=== PATIENT | female | born 1990 | race Caucasian/White ===

== ENCOUNTER 2016-06-28 11:13 | Emergency (ER) | payer BC ==
[~2016-06-28 11:13] MED LIST: ALBU25PO2 MC; DOCU100C PO; LORA10CA PO; OMEP40CA5 PO; PNV1TABL4 PO; PREN1TAB58 PO; PROM25TA10 PO; folic acid; singular
[2016-06-28 11:41] VITALS: BP 132/77
[2016-06-28] MEDS ORDERED: NAPROXEN 500 MG TABLET PO STA (12:02)
--- NOTE | 2016-06-28 12:12 | RAD ---
Indication dog bite. Pain. AP and lateral views of the left forearm were obtained. AP oblique and lateral views of the left wrist were also performed. There is some soft tissue swelling involving the midportion of the forearm and distally. An acute bony finding is not seen. No radiopaque foreign body is seen in the soft tissues. IMPRESSION: Soft tissue swelling. No bony abnormality seen
[2016-06-28] MEDS ORDERED: HYDROCODONE/APAP 5/325MG TABLET. PO ONE (12:15)
[2016-06-28] MEDS ORDERED: NEOMY/BACITR/POLYMYXIN OINT PACKET. TP ONE (12:15)
[2016-06-28] MEDS ORDERED: HYDR-971 PO (12:24)
[2016-06-28] MEDS ORDERED: AMOX1TAB61 PO (12:24)
--- NOTE | 2016-06-28 12:24 | PHYS DOC ---
Past Medical History Past Medical History: Depression, Hypertension Additional Past Medical Histor: seasonal allergies Past Surgical History: Cholecystectomy, Tonsillectomy Additional Past Surgical Histo: TE fistula repair, trach malasia, herniated ovary repair Additional Information: 1/2 ppd Alcohol Use: None Drug Use: None Adult General Chief Complaint Chief Complaint: ANIMAL BITE HPI HPI Patient is a 25 year old female who presents with dog bites to the left upper extremity, abdomen and right middle finger. Patient states she got bit by her neighbor's dog. Patient states the dog is up-to-date with his shots. Review of Systems Review of Systems Constitutional: Denies fever or chills [] Musculoskeletal: Denies back pain or joint pain [] Integument: dog bites to the left upper extremity, abdomen and right middle finger Neurologic: Denies headache, focal weakness or sensory changes [] Endocrine: Denies polyuria or polydipsia [] Current Medications Current Medications Current Medications Medications (Trade) Dose Ordered Sig/[place] Start Time Stop Time Status Last Admin Dose Admin Acetaminophen/ Hydrocodone Bitart (Lortab 5/325) 1 tab 1X ONCE 06/28/16 12:15 06/28/16 12:16 DC 06/28/16 12:17 1 TAB Naproxen (Naprosyn) 500 mg 1X STAT 06/28/16 12:02 06/28/16 12:05 DC Neomycin/ Polymyxin/ Bacitracin (Triple Antibiotic Ointment) 2 pkt 1X ONCE 06/28/16 12:15 06/28/16 12:16 DC 06/28/16 12:17 2 PKT Allergies Allergies Allergies Coded Allergies Type Severity Reaction Last Updated Verified gluten Allergy Intermediate 06/17/15 Yes melon Allergy Intermediate Itching 06/17/15 Yes ondansetron Allergy Intermediate makes her more nauseaous 06/17/15 Yes Physical Exam Physical Exam Constitutional: Well developed, well nourished, no acute distress, non-toxic appearance. [] Skin: Left forearm with multiple dog bite ruffin encompassing half the forearm, right middle finger with 1 dog bite anmol on the dorsal aspect of the PIP joint. The bite appears superficial. Full range of motion to the fingers. Adequate flexion and extension of the right middle finger at the MIP PIP and DIP joints. +2 right radial pulse. Cap refill less than 2 seconds the right upper extremity. Sensation intact to the right upper extremity. Mid lower abdomen with small amount of dog bite ruffin. Back: No tenderness, no CVA tenderness. [] Extremities: No tenderness, no cyanosis, no clubbing, ROM intact, no edema. [] Neurologic: Alert and oriented X 3, normal motor function, normal sensory function, no focal deficits noted. [] Psychologic: Affect normal, judgement normal, mood normal. [] Current Patient Data Vital Signs Vital Signs Date Time Temp Pulse Resp B/P Pulse Ox O2 Delivery O2 Flow Rate FiO2 06/28/16 12:17 20 06/28/16 11:41 98.9 83 97 Room Air 98.9 EKG EKG [] Radiology/Procedures Radiology/Procedures [] Course & Med Decision Making Course & Med Decision Making Pertinent Labs and Imaging studies reviewed. (See chart for details) Patient was seen for a dog bites. The dog is up-to-date with its shots. Patient is up-to-date with her tetanus. Left forearm and wrist x-rays interpreted by radiologist are negative for any acute findings. Patient was instructed to keep the area clean and dry. Neosporin recommended to the area. Discharged on Augmentin for 10 days. Provided return precautions and discharged in stable condition. Dragon Disclaimer Dragon Disclaimer This electronic medical record was generated, in whole or in part, using a voice recognition dictation system. Departure Departure Impression: Primary Impression: Dog bite Disposition: 01 HOME, SELF-CARE Condition: STABLE Referrals: ANUSHKA LOBO MD (PCP) follow up with your doctor in one week Patient Instructions: Animal Bite, [id number] Additional Instructions: You were seen for animal bites. Please wash the areas with soap and water, keep them covered if draining otherwise live them open to air. Complete your antibiotics. Come back to the emergency room if you have a fever or worsening symptoms. Scripts Hydrocodone/Apap 5-325 ([place] 5-325 Tablet)1 Each Tablet1-2 Tab PO Q4-6HRS #14 TAB Prov:[facility] 06/28/16 Amoxicillin/Potassium Clav (Augmentin 875-125 Tablet)1 Each Tablet1 Tab PO BID # 20 TAB Prov:[facility] 06/28/16 Problem Qualifiers Primary Impression: Dog bite Encounter type: initial encounter Qualified Code: W54.0XXA - Bitten by dog, initial encounter JEANNETET SCOTT APRN Jun 28, 2016 12:24
== END 2016-06-28 12:36 | disposition home or self-care (01) ==
LOC: ER 11:13
DX: S31.159A Open bite of abdominal wall, unspecified quadrant without penetration into peritoneal cavity, initial encounter (principal); S51.852A Open bite of left forearm, initial encounter; S61.252A Open bite of right middle finger without damage to nail, initial encounter; I10 Essential (primary) hypertension; Z88.8 Allergy status to other drugs, medicaments and biological substances; W54.0XXA Bitten by dog, initial encounter; Y93.89 Activity, other specified; Y92.89 Other specified places as the place of occurrence of the external cause; Y99.8 Other external cause status
CPT/HCPCS: 73090; 73110; 99284

== ENCOUNTER → 2016-07-26 | Outpatient (CLI) | payer BC ==
[2016-06-28 11:41] VITALS: BP 132/77
[~2016-07-26] MED LIST changes: +AMOX1TAB61 PO; +HYDR-971 PO
--- NOTE | 2016-07-26 16:33 | KCIC ---
PROCEDURE Left forearm sonogram. HISTORY Palpable lump. TECHNIQUE Sonographic imaging of the left forearm at the site of palpable concern was performed. COMPARISON None. FINDINGS There is no suspicious sonographic finding within the region of palpable concern along the forearm at the site of a dog bite. Specifically, no abscess is seen. IMPRESSION No sonographic abnormality within the left forearm underlying a dog bite. Electronically signed by: Tessa Kirby (Jul 26, 2016 16:32:12)
== END | disposition home or self-care (01) ==
LOC: KCIC US 15:35
PROVIDERS: ATTEND Nurse Practitioner Family
DX: R22.9 Localized swelling, mass and lump, unspecified (principal)
CPT/HCPCS: 76881

== ENCOUNTER 2016-12-07 19:42 | Emergency (ER) | payer BC ==
[~2016-12-07] VITALS: Ht 165.1 cm; Wt 113.4 kg
[~2016-12-07 19:42] MED LIST changes: +DOCU-150 PO; -DOCU100C PO
[2016-12-07] MEDS ORDERED: fentaNYL PF VIAL 100 MCG/2 ML VIAL IV ONE (20:15)
[2016-12-07] MEDS ORDERED: KETOROLAC TROMETHAMINE 30 MG/ML INJ. IV ONE (20:15)
[2016-12-07] MEDS ORDERED: PROMETHAZINE 12.5 MG in IV NORMAL SALINE 50ML 50 ML IV ONE (20:15)
[2016-12-07] MEDS ORDERED: IV NORMAL SALINE 1000ML BAG 1,000 ML IV ONE (20:15)
[2016-12-07 20:16] LABS: BASO % 0 % (0-3); EOS % 1 % (0-3); HEMATOCRIT 37.8 % (36.0-47.0); HEMOGLOBIN 13.3 g/dL (12.0-15.5); LYMPH # 2.1 x10^3/uL (1.0-4.8); LYMPH % 20 % (24-48); MEAN CORPUSCULAR HEMOGLOBIN 30 pg (25-35); MEAN CORPUSCULAR HGB CONC 35 g/dL (31-37); MEAN CORPUSCULAR VOLUME 85 fL (79-100); MONO % 7 % (0-9); NEUT % 72 % (31-73); PLATELET COUNT 212 x10^3/uL (140-400); RED BLOOD COUNT 4.44 x10^6/uL (3.50-5.40); RED CELL DISTRIBUTION WIDTH 13.4 % (11.5-14.5); WHITE BLOOD COUNT 10.5 x10^3/uL (4.0-11.0)
[2016-12-07 20:18] LABS: BILIRUBIN,URINE NEGATIVE (NEG); GLUCOSE,URINE NEGATIVE (NEG); NITRITE,URINE NEGATIVE (NEG); PROTEIN,URINE NEGATIVE (NEG-TRACE); UROBILINOGEN,URINE 0.2 mg/dL (0.2 mg/dL)
[2016-12-07 20:29] LABS: BACTERIA,URINE FEW /HPF (0-FEW); RBC,URINE 0 /HPF (0-2); SQUAMOUS EPITHELIAL CELL,UR FEW /LPF; WBC,URINE RARE /HPF (0-4)
[2016-12-07 20:34] LABS: CALCIUM 8.8 mg/dL (8.5-10.1); CREATININE 0.8 mg/dL (0.6-1.0); POTASSIUM 3.7 mmol/L (3.5-5.1)
[2016-12-07 20:41] LABS: ALBUMIN 3.6 g/dL (3.4-5.0); MAGNESIUM 1.7 mg/dL (1.8-2.4); TOTAL BILIRUBIN 0.4 mg/dL (0.2-1.0); TOTAL PROTEIN 7.3 g/dL (6.4-8.2)
--- NOTE | 2016-12-07 21:27 | PHYS DOC ---
Past Medical History Past Medical History: Depression, Hypertension Additional Past Medical Histor: seasonal allergies Past Surgical History: Cholecystectomy, Tonsillectomy Additional Past Surgical Histo: TE fistula repair, trach malasia, herniated ovary repair Alcohol Use: None Drug Use: None Adult General Chief Complaint Chief Complaint: FLANK PAIN HPI HPI Patient is a 26 year old female presenting to the emergency department for evaluation of left flank pain that started earlier today and has persisted and worsened. She says it is sharp worse with palpation and movement makes her nauseated but she has had no vomiting diarrhea constipation dysuria hematuria vaginal bleeding or vaginal discharge. Patient says that she has had a cholecystectomy but denies any other abdominal surgeries. Review of Systems Review of Systems Constitutional: Denies fever or chills [] Eyes: Denies change in visual acuity, redness, or eye pain [] HENT: Denies nasal congestion or sore throat [] Respiratory: Denies cough or shortness of breath [] Cardiovascular: No additional information not addressed in HPI [] GI: . No abdominal pain. + nausea, vomiting. No diarrhea [] : Denies dysuria or hematuria [] Musculoskeletal: + back pain. No joint pain [] Integument: Denies rash or skin lesions [] Neurologic: Denies headache, focal weakness or sensory changes [] Current Medications Current Medications Current Medications Medications (Trade) Dose Ordered Sig/[facility] Start Time Stop Time Status Last Admin Dose Admin Fentanyl Citrate (Fentanyl 2ml Vial) 75 mcg 1X ONCE 12/07/16 20:15 12/07/16 20:16 DC 12/07/16 20:25 75 MCG Hydromorphone HCl (Dilaudid) 1 mg 1X ONCE 12/07/16 21:30 12/07/16 21:31 DC 12/07/16 22:00 1 MG Ketorolac Tromethamine (Toradol) 30 mg 1X ONCE 12/07/16 20:15 12/07/16 20:16 DC 12/07/16 20:24 30 MG Promethazine HCl 12.5 mg/Sodium Chloride 50.5 ml @ 101 mls/hr 1X ONCE 12/07/16 20:15 12/07/16 20:44 DC 12/07/16 20:28 101 MLS/HR Sodium Chloride 1,000 ml @ 1,000 mls/hr 1X ONCE 12/07/16 20:15 12/07/16 21:14 DC 12/07/16 20:26 1,000 MLS/HR Allergies Allergies Allergies Coded Allergies Type Severity Reaction Last Updated Verified gluten Allergy Intermediate 06/17/15 Yes melon Allergy Intermediate Itching 06/17/15 Yes ondansetron Allergy Intermediate makes her more nauseaous 06/17/15 Yes Physical Exam Physical Exam Constitutional: Well developed, well nourished, no acute distress, non-toxic appearance. [] HENT: Normocephalic, atraumatic, bilateral external ears normal, oropharynx moist, no oral exudates, nose normal. [] Eyes: PERRLA, EOMI, conjunctiva normal, no discharge. [] Neck: Normal range of motion, no tenderness, supple, no stridor. [] Cardiovascular:Heart rate regular rhythm, no murmur [] Lungs & Thorax: Bilateral breath sounds clear to auscultation [] Abdomen: Bowel sounds normal, soft, no tenderness, no masses, no pulsatile masses. [] Skin: Warm, dry, no erythema, no rash. [] Back: No tenderness, no CVA tenderness. [] Extremities: No tenderness, no cyanosis, no clubbing, ROM intact, no edema. [] Neurologic: Alert and oriented X 3, normal motor function, normal sensory function, no focal deficits noted. [] Psychologic: Affect normal, judgement normal, mood normal. [] Current Patient Data Vital Signs Vital Signs Date Time Temp Pulse Resp B/P (MAP) Pulse Ox O2 Delivery O2 Flow Rate FiO2 12/07/16 22:00 98 Room Air 12/07/16 20:00 99.2 87 24 159/70 (99) 99.2 Lab Values Laboratory Tests Test 12/07/16 19:12 12/07/16 20:05 POC Urine HCG, Qualitative Hcg negative (Negative) White Blood Count 10.5 x10^3/uL (4.0-11.0) Red Blood Count 4.44 x10^6/uL (3.50-5.40) Hemoglobin 13.3 g/dL (12.0-15.5) Hematocrit 37.8 % (36.0-47.0) Mean Corpuscular Volume 85 fL (79-100) Mean Corpuscular Hemoglobin 30 pg (25-35) Mean Corpuscular Hemoglobin Concent 35 g/dL (31-37) Red Cell Distribution Width 13.4 % (11.5-14.5) Platelet Count 212 x10^3/uL (140-400) Neutrophils (%) (Auto) 72 % (31-73) Lymphocytes (%) (Auto) 20 % (24-48) L Monocytes (%) (Auto) 7 % (0-9) Eosinophils (%) (Auto) 1 % (0-3) Basophils (%) (Auto) 0 % (0-3) Neutrophils # (Auto) 7.5 x10^3uL (1.8-7.7) Lymphocytes # (Auto) 2.1 x10^3/uL (1.0-4.8) Monocytes # (Auto) 0.7 x10^3/uL (0.0-1.1) Eosinophils # (Auto) 0.1 x10^3/uL (0.0-0.7) Basophils # (Auto) 0.0 x10^3/uL (0.0-0.2) Urine Collection Type Unknown Urine Color Yellow Urine Clarity Clear Urine pH 7.0 Urine Specific [place] 1.025 Urine Protein Negative mg/dL (NEG-TRACE) Urine Glucose (UA) Negative mg/dL (NEG) Urine Ketones (Stick) Negative mg/dL (NEG) Urine Blood Negative (NEG) Urine Nitrite Negative (NEG) Urine Bilirubin Negative (NEG) Urine Urobilinogen Dipstick 0.2 mg/dL (0.2 mg/dL) Urine Leukocyte Esterase Negative (NEG) Urine RBC 0 /HPF (0-2) Urine WBC Rare /HPF (0-4) Urine Squamous Epithelial Cells Few /LPF Urine Bacteria Few /HPF (0-FEW) Urine Mucus Mod /LPF Sodium Level 139 mmol/L (136-145) Potassium Level 3.7 mmol/L (3.5-5.1) Chloride Level 105 mmol/L (98-107) Carbon Dioxide Level 27 mmol/L (21-32) Anion Gap 7 (6-14) Blood Urea Nitrogen 11 mg/dL (7-20) Creatinine 0.8 mg/dL (0.6-1.0) Estimated GFR (Cockcroft-Gault) 86.0 BUN/Creatinine Ratio 14 (6-20) Glucose Level 100 mg/dL (70-99) H Calcium Level 8.8 mg/dL (8.5-10.1) Magnesium Level 1.7 mg/dL (1.8-2.4) L Total Bilirubin 0.4 mg/dL (0.2-1.0) Aspartate Amino Transferase (AST) 20 U/L (15-37) Alanine Aminotransferase (ALT) 33 U/L (14-59) Alkaline Phosphatase 63 U/L (46-116) Total Protein 7.3 g/dL (6.4-8.2) Albumin 3.6 g/dL (3.4-5.0) Albumin/Globulin Ratio 1.0 (1.0-1.7) Lipase 121 U/L (73-393) Laboratory Tests 12/07/16 20:05 Laboratory Tests 12/07/16 20:05 EKG EKG [] Radiology/Procedures Radiology/Procedures History: Left flank pain beginning today, nausea. Comparison: None. Technique: CT of the abdomen and pelvis was performed without intravenous or oral contrast. Exposure: One or more of the following individualized dose reduction techniques were utilized for this examination: 1. Automated exposure control 2. Adjustment of the mA and/or kV according to patient size 3. Use of iterative reconstruction technique Findings: Evaluation of solid organs of the abdomen and pelvis is limited by lack of intravenous contrast. Evaluation of enteric structures may be limited by lack of oral contrast. Liver, spleen, pancreas, and bilateral adrenal glands are unremarkable. Gallbladder is absent. No bowel obstruction or inflammation is seen. Appendix is thought visualized and is without evidence of inflammation. Uterus and adnexa are unremarkable CT appearance. No free air or free fluid is seen in the abdomen or pelvis. Several calcifications are seen in the pelvis, favored to be phleboliths. Bilateral kidneys and ureters are free of stone or obstruction. 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 Impression: No acute abnormality identified in the abdomen or pelvis. Electronically signed by: Manda Castañeda MD (12/07/2016 9:55 PM) DICTATED and SIGNED BY: MANDA CASTAÑEDA MD DATE: 12/07/162148 Course & Med Decision Making Course & Med Decision Making Patient with left-sided back pain that is worse with palpation and movement. Patient continued to have pain in the emergency department and she was given Dilaudid and now she has no pain. Patient's repeat vital signs are normal including normal heart rate and oxygen saturation. Given patient appears well with normal vital signs benign physical exam and workup she'll be discharged in stable condition. Patient aware and agreeable with plan for discharge and verbalized understanding of the need for short-term follow-up and strict ER return precautions discussed worsening pain fevers vomiting or other general concerns. Dragon Disclaimer Dragon Disclaimer This electronic medical record was generated, in whole or in part, using a voice recognition dictation system. Departure Departure Impression: Primary Impression: Thoracic back pain Disposition: HOME, SELF-CARE Condition: GOOD Referrals: ANUSHKA LOBO MD (PCP) Patient Instructions: Back Pain, Adult Additional Instructions: TAKE 400MG OF IBUPROFEN EVERY 6 HOURS AND THE NORCO FOR BREAKTHROUGH PAIN. FOLLOW WITH YOUR PCP LATER THIS WEEK AND COME BACK TO THE ED SOONER WITH ANY NEW OR WORSENING PAIN, SOA, OR OTHER GENERAL CONCERNS. THANK YOU! Scripts Hydrocodone/Apap 5-325 (NORCO 5-325 TABLET) 1 Each Tablet 1 TAB PO PRN Q6HRS Y for PAIN, #14 TAB 0 Refills Prov: DESIRAE GUNTER DO 12/07/16 Problem Qualifiers Primary Impression: Thoracic back pain Chronicity: acute Back pain laterality: left Qualified Codes: M54.6 - Pain in thoracic spine DESIRAE GUNTER DO Dec 07, 2016 21:27
[2016-12-07] MEDS ORDERED: HYDROmorphone 2 MG/ML VIAL IV ONE (21:30)
--- NOTE | 2016-12-07 21:59 | RAD ---
History: Left flank pain beginning today, nausea. Comparison: None. Technique: CT of the abdomen and pelvis was performed without intravenous or oral contrast. Exposure: One or more of the following individualized dose reduction techniques were utilized for this examination: 1. Automated exposure control 2. Adjustment of the mA and/or kV according to patient size 3. Use of iterative reconstruction technique Findings: Evaluation of solid organs of the abdomen and pelvis is limited by lack of intravenous contrast. Evaluation of enteric structures may be limited by lack of oral contrast. Liver, spleen, pancreas, and bilateral adrenal glands are unremarkable. Gallbladder is absent. No bowel obstruction or inflammation is seen. Appendix is thought visualized and is without evidence of inflammation. Uterus and adnexa are unremarkable CT appearance. No free air or free fluid is seen in the abdomen or pelvis. Several calcifications are seen in the pelvis, favored to be phleboliths. Bilateral kidneys and ureters are free of stone or obstruction. 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 Impression: No acute abnormality identified in the abdomen or pelvis. Electronically signed by: Alex Castañeda MD (12/07/2016 9:55 PM)
[2016-12-07] MEDS ORDERED: HYDR-971 PO (22:08)
[2016-12-07 22:26] VITALS: BP 125/67
== END 2016-12-07 22:27 | disposition home or self-care (01) ==
LOC: ER 19:42
DX: M54.6 Pain in thoracic spine (principal); R11.2 Nausea with vomiting, unspecified; F32.9 Major depressive disorder, single episode, unspecified; I10 Essential (primary) hypertension; Z98.890 Other specified postprocedural states; Z90.49 Acquired absence of other specified parts of digestive tract; Z88.8 Allergy status to other drugs, medicaments and biological substances
CPT/HCPCS: 36415; 74176; 80053; 81001; 81025; 83690; 83735; 85027; 96365; 96375; 99285; J1170; J1885; J2550; J3010; J7030

== ENCOUNTER 2017-08-28 20:47 | Emergency (ER) | payer BC ==
[2017-08-28 21:42] LABS: URINE HCG POC HCG POSITIVE (Negative)
== END 2017-08-28 23:56 | disposition home or self-care (01) ==
LOC: ER 23:56
DX: O03.9 Complete or unspecified spontaneous abortion without complication (principal); F32.9 Major depressive disorder, single episode, unspecified; I10 Essential (primary) hypertension; Z90.49 Acquired absence of other specified parts of digestive tract; Z88.8 Allergy status to other drugs, medicaments and biological substances; Z91.018 Allergy to other foods
CPT/HCPCS: 36415; 76801; 76817; 81025; 84702; 99285-25

== ENCOUNTER 2017-09-01 14:58 | Emergency (ER) | payer BC ==
[2017-09-01 15:47] LABS: BILIRUBIN,URINE NEGATIVE (NEG); CLARITY,URINE CLEAR; COLOR,URINE YELLOW; GLUCOSE,URINE NEGATIVE (NEG); NITRITE,URINE NEGATIVE (NEG); PROTEIN,URINE NEGATIVE (NEG-TRACE); UROBILINOGEN,URINE 0.2 mg/dL (0.2 mg/dL)
[2017-09-01 16:06] LABS: BACTERIA,URINE 0 /HPF (0-FEW); SQUAMOUS EPITHELIAL CELL,UR MOD /LPF; WBC,URINE 0 /HPF (0-4)
[2017-09-01 16:22] LABS: ADD MAN DIFF? NO
[2017-09-01 16:33] LABS: ANION GAP 10 (6-14); BLOOD UREA NITROGEN 9 mg/dL (7-20); CALCIUM 8.8 mg/dL (8.5-10.1); CARBON DIOXIDE 24 mmol/L (21-32); CHLORIDE 109 mmol/L (98-107); CREATININE 0.7 mg/dL (0.6-1.0); GFR 100.4; GLUCOSE 90 mg/dL (70-99); POTASSIUM 3.8 mmol/L (3.5-5.1); SODIUM 143 mmol/L (136-145)
[2017-09-01 16:41] LABS: BASO # 0.1 x10^3/uL (0.0-0.2); BASO % 1 % (0-3); EOS # 0.2 x10^3/uL (0.0-0.7); EOS % 2 % (0-3); HEMATOCRIT 38.1 % (36.0-47.0); LYMPH # 2.5 x10^3/uL (1.0-4.8); LYMPH % 31 % (24-48); MEAN CORPUSCULAR HEMOGLOBIN 30 pg (25-35); MEAN CORPUSCULAR HGB CONC 34 g/dL (31-37); MEAN CORPUSCULAR VOLUME 89 fL (79-100); MONO # 0.4 x10^3/uL (0.0-1.1); MONO % 5 % (0-9); NEUT % 62 % (31-73); PLATELET COUNT 220 x10^3/uL (140-400); RED CELL DISTRIBUTION WIDTH 13.5 % (11.5-14.5); WHITE BLOOD COUNT 8.1 x10^3/uL (4.0-11.0)
[2017-09-01] MEDS ORDERED: PROMETHAZINE IM 25 MG/ML VIAL IM (16:44)
[2017-09-01] MEDS ORDERED: KETOROLAC 30 MG/ML INJ. IV (16:45)
[2017-09-01] MEDS ORDERED: PROMETHAZINE 12.5 MG in IV DEXTROSE 5% 50 ML IV (16:45)
[2017-09-01] MEDS ORDERED: KETOROLAC 60 MG/2 ML INJ. (16:47)
[2017-09-01] MEDS ORDERED: PROMETHAZINE 12.5 MG TABLET. (16:47)
[2017-09-01] MEDS: PROMETHAZINE 12.5 MG TABLET. PO (16:50)
[2017-09-01] MEDS: KETOROLAC 60 MG/2 ML INJ. IM (16:50)
[2017-09-01] MEDS: fentaNYL PF VIAL 100 MCG/2 ML VIAL IV ×3 (18:47→20:44)
[2017-09-01] MEDS ORDERED: IV RINGERS,LACTATED 1000ML 1,000 ML IV (19:02)
[2017-09-01] MEDS ORDERED: LIDOCAINE 1% PF 2 ML VIAL. ID (19:15)
[2017-09-01] MEDS ORDERED: PROCHLORPERAZINE 10 MG/2 ML VIAL. IV (19:15)
[2017-09-01] MEDS ORDERED: MORPHINE SULFATE 2 MG/ML DISP.SYRIN. IV (19:15)
[2017-09-01] MEDS ORDERED: fentaNYL PF VIAL 100 MCG/2 ML VIAL IV (19:15)
[2017-09-01] MEDS ORDERED: MIDAZOLAM HCL/PF 2 MG/2 ML VIAL. (19:25)
[2017-09-01] MEDS ORDERED: ceFAZolin 1GM IVPB FOR OMNI 100 ML IV (19:28)
[2017-09-01] MEDS ORDERED: fentaNYL PF VIAL 100 MCG/2 ML VIAL (19:38)
[2017-09-01] MEDS ORDERED: DEXAMETHASONE SOD PHOS 20 MG/5 ML VIAL. (19:39)
[2017-09-01] MEDS ORDERED: PROPOFOL 20 ML IV (19:39)
[2017-09-01] MEDS ORDERED: METOCLOPRAMIDE HCL 10 MG/2 ML VIAL. (19:39)
[2017-09-01] MEDS ORDERED: OXYTOCIN 10 UNIT/ML VIAL. (19:46)
[2017-09-01] MEDS ORDERED: KETOROLAC 30 MG/ML INJ FOR OR. INJ (19:47)
[2017-09-01] MEDS: oxyCODONE/APAP 5/325 1 TAB TABLET PO (20:59)
== END 2017-09-01 21:30 | disposition home or self-care (01) ==
LOC: ER 14:58 → 3 NORTH 18:07
DX: O03.9 Complete or unspecified spontaneous abortion without complication (principal); F32.9 Major depressive disorder, single episode, unspecified; Z88.8 Allergy status to other drugs, medicaments and biological substances; Z91.018 Allergy to other foods
CPT/HCPCS: 36415; 76801; 76817; 80048; 81001; 84702; 85025; 86850; 86900; 86901; 88305; 96365; 96372; 96374; 96376; 99285-25; J0690; J1100; J1885; J2250; J2590; J2704; J2765; J3010; Q0169

== ENCOUNTER → 2018-05-29 | Outpatient (CLI) | payer BC ==
[2017-09-01 21:01] VITALS: BP 97/64
[~2018-05-29] MED LIST changes: +HYDR-3164 PO; -HYDR-971 PO; +IOHEXOL 240 MG/ML 50ML VIAL. PO ONE; +IOHEXOL 300 MG/ML 100ML VIAL. IV ONE
[2018-05-29 15:00] LABS: BASO % 1 % (0-3); EOS # 0.1 x10^3/uL (0.0-0.7); EOS % 2 % (0-3); HEMOGLOBIN 13.8 g/dL (12.0-15.5); LYMPH % 30 % (24-48); MEAN CORPUSCULAR HEMOGLOBIN 31 pg (25-35); MEAN CORPUSCULAR HGB CONC 35 g/dL (31-37); MEAN CORPUSCULAR VOLUME 89 fL (79-100); MONO # 0.7 x10^3/uL (0.0-1.1); MONO % 10 % (0-9); NEUT # 4.1 x10^3uL (1.8-7.7); NEUT % 59 % (31-73); PLATELET COUNT 227 x10^3/uL (140-400); RED BLOOD COUNT 4.52 x10^6/uL (3.50-5.40); RED CELL DISTRIBUTION WIDTH 13.4 % (11.5-14.5); WHITE BLOOD COUNT 6.9 x10^3/uL (4.0-11.0)
[2018-05-29 15:20] LABS: ALBUMIN 3.6 g/dL (3.4-5.0); ALBUMIN/GLOBULIN RATIO 0.9 (1.0-1.7); CALCIUM 9.3 mg/dL (8.5-10.1); CREATININE 0.7 mg/dL (0.6-1.0); GFR 99.6; POTASSIUM 3.8 mmol/L (3.5-5.1); TOTAL BILIRUBIN 0.3 mg/dL (0.2-1.0); TOTAL PROTEIN 7.8 g/dL (6.4-8.2)
--- NOTE | 2018-05-29 15:59 | RAD ---
CT of the abdomen and pelvis with contrast, 05/29/2018: HISTORY: Nausea, pelvic pain, fever Multidetector CT imaging was performed following oral and IV administration of contrast. The gallbladder is surgically absent. No hepatic mass or bile duct dilatation is seen. The pancreas is unremarkable. The spleen is of normal size. No renal or adrenal abnormality is detected. The abdominal aorta is unremarkable. No abdominal or pelvic adenopathy is seen. The uterus is unremarkable. The bowel loops are not dilated. The appendix is not visualized. No dilated appendix or pericecal inflammatory process is seen. No free fluid or free air is evident in the abdomen or pelvis. There are scattered degenerative changes in the spine. Fusion of the L4 and L5 vertebral bodies is presumably on a congenital basis. IMPRESSION: No acute abdominal or pelvic abnormality is detected. PQRS Compliance Statement: One or more of the following individualized dose reduction techniques were utilized for this examination: 1. Automated exposure control 2. Adjustment of the mA and/or kV according to patient size 3. Use of iterative reconstruction technique Electronically signed by: Jemal Lizarraga MD (05/29/2018 3:56 PM) [facility]
== END | disposition home or self-care (01) ==
LOC: CT 14:02
PROVIDERS: ATTEND Nurse Practitioner Family
DX: R10.2 Pelvic and perineal pain (principal); R50.9 Fever, unspecified; R11.0 Nausea
CPT/HCPCS: 36415; 74177; 80053; 85025; Q9966; Q9967

== ENCOUNTER 2019-01-05 12:14 | Observation (INO) | payer BC ==
[2017-09-01 21:01] VITALS: BP 97/64
[~2019-01-05 12:14] MED LIST changes: -IOHEXOL 240 MG/ML 50ML VIAL. PO ONE; -IOHEXOL 300 MG/ML 100ML VIAL. IV ONE
[2019-01-05] MEDS ORDERED: IV RINGERS,LACTATED 1000ML 1,000 ML IV SCH (12:27)
[2019-01-05 13:03] LABS: BILIRUBIN,URINE NEGATIVE (NEG); CLARITY,URINE CLEAR; COLOR,URINE YELLOW; NITRITE,URINE NEGATIVE (NEG); PH,URINE 6.5; PROTEIN,URINE NEGATIVE (NEG-TRACE); UROBILINOGEN,URINE 0.2 mg/dL (0.2 mg/dL)
[2019-01-05 13:16] LABS: BACTERIA,URINE 0 /HPF (0-FEW); RBC,URINE 0 /HPF (0-2); SQUAMOUS EPITHELIAL CELL,UR FEW /LPF; WBC,URINE 0 /HPF (0-4)
== END 2019-01-05 13:15 | disposition home or self-care (01) ==
LOC: 3 SO LND 12:14
PROVIDERS: ADMIT Obstetrics & Gynecology; ATTEND Obstetrics & Gynecology
DX: O26.852 Spotting complicating pregnancy, second trimester (principal); O26.892 Other specified pregnancy related conditions, second trimester; R10.30 Lower abdominal pain, unspecified; Z3A.23 23 weeks gestation of pregnancy
CPT/HCPCS: 81001; G0378; G0379

== ENCOUNTER 2019-01-27 15:58 | Observation (INO) | payer BC ==
[2017-09-01 21:01] VITALS: BP 97/64
[~2019-01-27] VITALS: Ht 165.1 cm; Wt 129.3 kg
[2019-01-27 16:38] LABS: BILIRUBIN,URINE SMALL (NEG); CLARITY,URINE CLEAR; COLOR,URINE AMBER; NITRITE,URINE NEGATIVE (NEG); PH,URINE 6.5; PROTEIN,URINE NEGATIVE (NEG-TRACE)
[2019-01-27 16:54] LABS: SQUAMOUS EPITHELIAL CELL,UR MOD /LPF
[2019-01-27 16:55] LABS: AMORPHOUS SEDIMENT,UR PRESENT /HPF; BACTERIA,URINE MODERATE /HPF (0-FEW); RBC,URINE 0 /HPF (0-2)
[2019-01-27] MEDS: IV RINGERS,LACTATED 1000ML 1,000 ML IV PRN ×2 (17:20→18:21)
== END 2019-01-27 20:02 | disposition home or self-care (01) ==
LOC: 3 SO LND 15:58
PROVIDERS: ADMIT Specialist; ATTEND Specialist
DX: O26.892 Other specified pregnancy related conditions, second trimester (principal); N89.8 Other specified noninflammatory disorders of vagina; Z3A.26 26 weeks gestation of pregnancy
CPT/HCPCS: 81001; 87086; G0378; G0379; J7120

== ENCOUNTER 2019-01-30 15:09 | Emergency (ER) | payer BC ==
[2017-09-01 21:01] VITALS: BP 97/64
== END 2019-01-30 15:34 | disposition left against medical advice (07) ==
LOC: ER 15:09
DX: R50.9 Fever, unspecified (principal); Z53.21 Procedure and treatment not carried out due to patient leaving prior to being seen by health care provider

== ENCOUNTER 2019-01-30 15:22 | Observation (INO) | payer BC ==
[2017-09-01 21:01] VITALS: BP 97/64
[2019-01-30] MEDS ORDERED: IV RINGERS,LACTATED 1000ML 1,000 ML IV SCH (15:42)
[2019-01-30] MEDS ORDERED: ACETAMINOPHEN 325 MG TABLET. PO PRN (15:45)
[2019-01-30 15:53] LABS: BILIRUBIN,URINE NEGATIVE (NEG); CLARITY,URINE CLOUDY; COLOR,URINE YELLOW; NITRITE,URINE NEGATIVE (NEG); PH,URINE 6.5; PROTEIN,URINE NEGATIVE (NEG-TRACE); UROBILINOGEN,URINE 0.2 mg/dL (0.2 mg/dL)
[2019-01-30 16:13] LABS: RBC,URINE 0 /HPF (0-2)
[2019-01-30 16:14] LABS: BACTERIA,URINE FEW /HPF (0-FEW); SQUAMOUS EPITHELIAL CELL,UR OCC /LPF; WBC,URINE OCC /HPF (0-4)
== END 2019-01-30 17:40 | disposition home or self-care (01) ==
LOC: 3 SO LND 15:22
PROVIDERS: ADMIT Obstetrics & Gynecology; ATTEND Obstetrics & Gynecology
DX: O26.892 Other specified pregnancy related conditions, second trimester (principal); R10.9 Unspecified abdominal pain; Z3A.27 27 weeks gestation of pregnancy
CPT/HCPCS: 81001; G0378; G0379

== ENCOUNTER 2019-03-13 10:47 | Observation (INO) | payer BC ==
[2017-09-01 21:01] VITALS: BP 97/64
[~2019-03-13 10:47] MED LIST changes: +OMEP40CA45 PO; -OMEP40CA5 PO
--- NOTE | 2019-03-15 11:48 | RAD ---
Biophysical profile 03/13/2019 Clinical History: 33 weeks gestation. Large for dates. Technique: A real-time ultrasound examination of the gravid uterus was performed over a 30 minute period of observation by the genetic technologist. The following parameters were scored at 2 point scale: respiration, tone, breathing and quantitative amniotic fluid volume. Multiple images were obtained. Findings: There is a single living IUP. The fetus is in a cephalic position. The placenta is anterior. Amniotic fluid volume is within normal limits. heart rate is 145 bpm. The CHRIS measures 11.5. respiration, movement, tone and qualitative amniotic fluid volume score 2 out of 2 points for an 8 out of 8 biophysical profile. Impression: 8 out of 8 biophysical profile. Electronically signed by: Noah Molina MD (03/15/2019 11:45 AM) [id number]
== END 2019-03-13 12:30 | disposition home or self-care (01) ==
LOC: 3 SO LND 10:47
PROVIDERS: ADMIT Obstetrics & Gynecology; ATTEND Obstetrics & Gynecology
DX: Z34.93 Encounter for supervision of normal pregnancy, unspecified, third trimester (principal); Z3A.33 33 weeks gestation of pregnancy
CPT/HCPCS: 76819; G0378; G0379

== ENCOUNTER 2019-03-20 14:53 | Observation (INO) | payer BC ==
[2017-09-01 21:01] VITALS: BP 97/64
[2019-03-20 15:52] LABS: BILIRUBIN,URINE NEGATIVE (NEG); CLARITY,URINE CLEAR; COLOR,URINE YELLOW; NITRITE,URINE NEGATIVE (NEG); PROTEIN,URINE NEGATIVE (NEG-TRACE); UROBILINOGEN,URINE 0.2 mg/dL (0.2 mg/dL)
[2019-03-20 16:04] LABS: SQUAMOUS EPITHELIAL CELL,UR MOD /LPF
[2019-03-20 16:05] LABS: BACTERIA,URINE MODERATE /HPF (0-FEW); RBC,URINE 0 /HPF (0-2)
--- NOTE | 2019-03-20 16:10 | RAD ---
EXAM: Obstetrics sonogram; biophysical profile. HISTORY: Large for dates. TECHNIQUE: Sonographic imaging of a gravid uterus was performed. COMPARISON: 03/13/2019. FINDINGS: There is a single intrauterine fetus in cephalic presentation with a normal heart rate of 145 bpm. The biparietal diameter is 8.67 cm, corresponding with 35 weeks and 0 days. The heads are currently is 31.86 cm, corresponding with 35 weeks and 6 days. The abdominal circumference is 32.55 cm, corresponding with 36 weeks and 3 days. The femoral length is 7.48 cm, corresponding with 38 weeks and 2 days. The estimated gestational age based on combined ultrasound measurements is 36 weeks and 3 days and the estimated due date is 04/14/2019. The estimated weight is at the 79th percentile for an estimated gestational age based on LMP of 34 weeks and 2 days. There is a grade 1 anterolisthesis and without evidence of placenta previa. The cervix is obscured. There is normal body motion, breathing motion and tone and there is a normal amniotic fluid volume, corresponding with a biophysical profile of 8/8. The amniotic fluid index is normal at 10.8 cm. IMPRESSION: 1. Single intrauterine fetus with an estimated gestational age based on ultrasound measurements of 36 weeks and 3 days. The estimated weight is at the 79th percentile for an estimated additional age of 34 weeks and 2 days based on LMP. 2. Normal biophysical profile of 8/8. Electronically signed by: Tessa Kirby MD (03/20/2019 4:07 PM) [facility]
== END 2019-03-20 17:00 | disposition home or self-care (01) ==
LOC: 3 SO LND 14:53
PROVIDERS: ADMIT Obstetrics & Gynecology; ATTEND Obstetrics & Gynecology
DX: O62.9 Abnormality of forces of labor, unspecified (principal); Z3A.34 34 weeks gestation of pregnancy
CPT/HCPCS: 76815; 76819; 81001; 87086; G0378; G0379; 59025

== ENCOUNTER 2019-03-28 10:03 | Observation (INO) | payer BC ==
[2017-09-01 21:01] VITALS: BP 97/64
--- NOTE | 2019-03-28 12:18 | RAD ---
Examination: OB LIMITED History: size greater than expected for dates Comparison/Correlation: 03/20/2019 Limited OB ultrasound exam Findings: Limited OB ultrasound exam was performed. Biophysical profile scoring was performed. breathing movements: 2/2 motion: 0/2 ultrasound: 2/2 Amniotic fluid volume: 2/2 Total biophysical profile score: 6/8. heart rate of 149 bpm is present. Cephalic lie is noted with annular fluid index of 9.5. Anterior located placenta is present. Biparietal diameter mean measurement of 9.1 corresponding to 36 weeks 6 days gestation. Head circumference of 33.47 cm corresponds to 38 weeks 2 days. Abdominal circumference of 33.05 corresponding to 37 weeks 0 days Femur length of 7.4 cm corresponds to 38 weeks 0 days Estimated weight of 2190 g corresponding to 39 weeks 4 days and this is at the 76th percentile. Cephalic index ratio is 79.7 which is within normal range. Head circumference to abdominal circumference ratio 1.01 is in normal range. Femur length to biparietal diameter ratio of 1.8 as normal range. Femur length to head circumference ratio is 22.2 and femur length to abdominal circumference ratio is 22.5 and these are within normal range. Average ultrasound age of 37 weeks 4 days is evident with EDC of 04/14/2019. Clinical age of 35 weeks 3 days with EDC of 04/29/2019 is noted. Impression: Single living intrauterine gestation with biophysical profile of 6/8. motion is limited. Average ultrasound age of 37 weeks 4 days is 2 weeks 1 day greater than expected by last menstrual period. Adequate growth since the previous exam. Electronically signed by: Elder Montgomery MD (03/28/2019 12:15 PM) [facility]
== END 2019-03-28 12:32 | disposition home or self-care (01) ==
LOC: 3 SO LND 10:03
PROVIDERS: ADMIT Obstetrics & Gynecology; ATTEND Obstetrics & Gynecology
DX: Z34.93 Encounter for supervision of normal pregnancy, unspecified, third trimester (principal); Z3A.35 35 weeks gestation of pregnancy
CPT/HCPCS: 76815; G0378; G0379; 59025

== ENCOUNTER 2019-03-29 09:21 | Observation (INO) | payer BC ==
[2017-09-01 21:01] VITALS: BP 97/64
[2019-03-29 09:58] LABS: BILIRUBIN,URINE NEGATIVE (NEG); CLARITY,URINE CLEAR; COLOR,URINE YELLOW; NITRITE,URINE NEGATIVE (NEG); PH,URINE 6.5; PROTEIN,URINE NEGATIVE (NEG-TRACE); UROBILINOGEN,URINE 0.2 mg/dL (0.2 mg/dL)
[2019-03-29 10:34] LABS: BACTERIA,URINE MODERATE /HPF (0-FEW); RBC,URINE OCC /HPF (0-2); SQUAMOUS EPITHELIAL CELL,UR FEW /LPF
--- NOTE | 2019-03-29 10:52 | RAD ---
Biophysical profile 03/29/2019 Clinical History: Third trimester . Neck mass. 6 out of 8 biophysical profile yesterday. Technique: A real-time ultrasound examination of the gravid uterus was performed over a 30 minute period of observation by the robotics technologist. The following parameters were scored at 2 point scale: respiration, tone, breathing and quantitative amniotic fluid volume. Multiple images were obtained. Findings: Comparison study is dated 03/28/2019. There is a single living IUP. The fetus is in a cephalic position. The placenta is anterior. Amniotic fluid volume is within normal limits. heart rate is 141 bpm. The CHRIS measures 13.6 cm. respiration, movement, tone and qualitative amniotic fluid volume score 2 out of 2 points for an 8 out of 8 biophysical profile. Impression: 8 out of 8 biophysical profile. Electronically signed by: Noah Molina MD (03/29/2019 10:49 AM) [id number]
== END 2019-03-29 11:02 | disposition home or self-care (01) ==
LOC: 3 SO LND 09:21
PROVIDERS: ADMIT Obstetrics & Gynecology; ATTEND Obstetrics & Gynecology
DX: Z34.93 Encounter for supervision of normal pregnancy, unspecified, third trimester (principal); Z3A.35 35 weeks gestation of pregnancy
CPT/HCPCS: 76819; 81001; 87086; G0378; G0379

== ENCOUNTER 2019-04-02 12:08 | Observation (INO) | payer BC ==
[2017-09-01 21:01] VITALS: BP 97/64
[2019-04-02] MEDS ORDERED: IV RINGERS,LACTATED 1000ML 1,000 ML IV PRN (12:30)
--- NOTE | 2019-04-02 13:40 | RAD ---
EXAM: Obstetrics sonogram; biophysical profile. HISTORY: Macrosomia. TECHNIQUE: Sonographic imaging of a gravid uterus was performed. COMPARISON: 03/29/2019. FINDINGS: There is a single intrauterine fetus in cephalic presentation with a heart rate of 128 bpm. The biparietal diameter is 9.23 cm, corresponding with 37 weeks and 3 days. The head circumference is 33.58 cm, corresponding with 38 weeks and 3 days. The abdominal circumference is 34.59 cm, corresponding with 38 weeks and 3 days. The femoral length is 7.44 cm, corresponding with 38 weeks and 0 days. The estimated gestational age patient combined ultrasound measurements is 38 weeks and 1 day and the estimated weight is 3444 g. This corresponds with the 82nd percentile for an estimated gestational age of 36 weeks and 1 day based on LMP. The MARLEEN based on ultrasound measurements is 04/15/2019. The estimated due date is 04/15/2019. There is a grade 2 anterior placenta without evidence of placenta previa. The amniotic fluid index is normal at 11.0 cm. There is normal breathing motion, body motion and tone. This corresponds with a biophysical profile 8/8. IMPRESSION: 1. Single intrauterine fetus in cephalic presentation with a normal heart rate and estimated gestational age based on ultrasound measurements of 38 weeks and 1 day. This is 2 weeks greater than expected for the gestational age based on LMP. The estimated weight is at the 82nd percentile. 2. Normal biophysical profile of 8/8. Electronically signed by: Tessa Kirby MD (04/02/2019 1:36 PM) [facility]
== END 2019-04-02 13:30 | disposition home or self-care (01) ==
LOC: 3 SO LND 12:08
PROVIDERS: ADMIT Obstetrics & Gynecology; ATTEND Obstetrics & Gynecology
DX: Z34.93 Encounter for supervision of normal pregnancy, unspecified, third trimester (principal); Z3A.36 36 weeks gestation of pregnancy
CPT/HCPCS: 76815; 76819; G0379; 59025; G0378

== ENCOUNTER 2019-04-06 22:06 | Observation (INO) | payer BC ==
[2017-09-01 21:01] VITALS: BP 97/64
[2019-04-06] MEDS ORDERED: ACETAMINOPHEN 325 MG TABLET. PO PRN (22:45)
[2019-04-06] MEDS ORDERED: MAG HYDROX/ALUMINUM HYD/SIMETH 30 ML ORAL.SUSP PO PRN (22:45)
[2019-04-06 22:46] LABS: BILIRUBIN,URINE NEGATIVE (NEG); CLARITY,URINE CLEAR; COLOR,URINE AMBER; NITRITE,URINE NEGATIVE (NEG); PH,URINE 6.5; PROTEIN,URINE NEGATIVE (NEG-TRACE); UROBILINOGEN,URINE 0.2 mg/dL (0.2 mg/dL)
[2019-04-06 22:52] LABS: BACTERIA,URINE MODERATE /HPF (0-FEW); RBC,URINE RARE /HPF (0-2); SQUAMOUS EPITHELIAL CELL,UR FEW /LPF
[2019-04-06] MEDS ORDERED: IV RINGERS,LACTATED 1000ML 1,000 ML IV SCH (23:00)
[2019-04-06] MEDS ORDERED: hydrOXYzine IM 50 MG/ML VIAL IM ONE (23:30)
--- NOTE | 2019-04-06 23:30 | NUR ---
28 yo with EDC 04/29/19 presents to L&D with complaints of contractions that started at 1800 and an episode on nausea and vomiting at 1930. Denies feeling contraction pain during visit. No vomiting during visit. Complains of feel nausea and unable to take pills prescribed by doctor. Given IM Vistaril per Dr Hu's orders. Discharged to home at 2330. Accompanied by spouse.
== END 2019-04-06 23:30 | disposition home or self-care (01) ==
LOC: 3 SO LND 22:06
PROVIDERS: ADMIT Obstetrics & Gynecology; ATTEND Obstetrics & Gynecology
DX: O62.9 Abnormality of forces of labor, unspecified (principal); Z3A.36 36 weeks gestation of pregnancy
CPT/HCPCS: 81001; 87086; 96372; G0378; G0379; J3410

== ENCOUNTER 2019-04-09 08:53 | Observation (INO) | payer BC ==
[2017-09-01 21:01] VITALS: BP 97/64
--- NOTE | 2019-04-09 14:10 | RAD ---
Examination: BIOPHYS PROFILE W/O NON STRESS, OB LIMITED History: Macrosomia Comparison/Correlation: 04/02/2019 OB ultrasound Findings: Single living intrauterine gestation is present. Cephalic lie noted. Anteriorly located placenta is present. It is grade 2. heart rate is 150 beats per minute. Normal amniotic fluid volume is present with amniotic fluid index of 9.5. Biparietal diameter is 9.49 cm corresponding to 38 weeks 5 days. Head circumference is 33.85 cm corresponding to 38 weeks 6 days. Abdominal circumference is 36.52 cm corresponding to 40 weeks 3 days Femur length is 7.83 cm corresponding to 40 weeks 0 days. Cephalic index is 83. Femur length to biparietal diameter ratio is a 2.5. Femur length to head circumference ratio is 23.1. Femur length to abdominal circumference ratio 21.4. Head circumference to abdominal circumference ratio is 0.93. Estimated weight is 3933 g. Gestational age is 39 weeks 4 days. Sonographic EDC is 04/12/2019. Biophysical profile score is 8/8. Impression: Single living intrauterine gestation with ultrasound age of 39 weeks 4 days is present and this is 2 weeks greater than by last menstrual period. Adequate interval growth since the prior ultrasound exam noted. Biophysical profile score is 8/8. Electronically signed by: Elder Montgomery MD (04/09/2019 2:06 PM) [facility]
== END 2019-04-09 10:15 | disposition home or self-care (01) ==
LOC: 3 SO LND 08:53
PROVIDERS: ADMIT Obstetrics & Gynecology; ATTEND Obstetrics & Gynecology
DX: O62.9 Abnormality of forces of labor, unspecified (principal); Z3A.37 37 weeks gestation of pregnancy
CPT/HCPCS: 76815; 76819; G0378; G0379; 59025

== ENCOUNTER 2019-04-17 08:31 | Observation (INO) | payer BC ==
[2017-09-01 21:01] VITALS: BP 97/64
--- NOTE | 2019-04-17 10:35 | RAD ---
EXAM: Obstetrics sonogram; biophysical profile. HISTORY: Macrosomia. TECHNIQUE: Sonographic imaging of a gravid uterus was performed. COMPARISON: 04/09/2019. FINDINGS: There is a single intrauterine fetus in cephalic presentation with a normal heart rate of 136 bpm. The cervix is normal in length and closed, measuring 5.2 cm. There is an anterior placenta without evidence of placenta previa. The amniotic fluid index is normal at 10.6 cm. There is normal tone, breathing motion and body motion, for a biophysical profile score of 8/8. The biparietal diameter is 9.57 cm, corresponding with 39 weeks and 1 day and the 90th percentile. The head circumference is 35.40 cm, corresponding with 41 weeks and 3 days and the 93rd percentile. The abdominal circumference is 36.57 cm, corresponding with 40 weeks and 3 days and the 98th percentile. The femoral length is 7.97 cm, corresponding with 40 weeks and 5 days and the 96th percentile. The estimated gestational age patient combined ultrasound measurements is 40 weeks and 3 days and the estimated due date is 04/14/2019. The estimated weight is 4092 g. The estimated gestational age based on LMP is 38 weeks and 2 days and the estimated due date based on LMP is 04/29/2019. IMPRESSION: 1. Single intrauterine fetus in cephalic presentation with a normal heart rate and gestational age based on ultrasound measurements of 40 weeks and 3 days. This is 2 weeks and 1 day greater than the gestational age based on LMP of 38 weeks and 2 days. 2. Normal biophysical profile of 8/8. Electronically signed by: Tessa Kirby MD (04/17/2019 10:32 AM) [facility]
== END 2019-04-17 10:51 | disposition home or self-care (01) ==
LOC: 3 SO LND 08:31
PROVIDERS: ADMIT Obstetrics & Gynecology; ATTEND Obstetrics & Gynecology
DX: O36.63X0 Maternal care for excessive fetal growth, third trimester, not applicable or unspecified (principal); Z3A.38 38 weeks gestation of pregnancy
CPT/HCPCS: 76815; 76819; G0378; G0379; 59025

== ENCOUNTER 2019-04-22 05:35 | Inpatient (IN) | payer BC ==
[~2019-04-22] VITALS: Ht 165.1 cm; Wt 135.6 kg
[2019-04-22] VITALS (7 sets, daily range): BP systolic 100–127; BP diastolic 54–75
[2019-04-22] MEDS ORDERED: IV RINGERS,LACTATED 1000ML 1,000 ML IV SCH (05:37)
[2019-04-22] MEDS ORDERED: 0.9 % SODIUM CHLORIDE 10 ML DISP.SYRIN. IV PRN ×2 (05:45→07:45)
[2019-04-22] MEDS ORDERED: IBUPROFEN 400 MG TABLET. PO PRN (05:45)
[2019-04-22] MEDS ORDERED: CITRIC ACID/SODIUM CITRATE 30 ML SOLUTION. PO PRN (05:45)
[2019-04-22] MEDS ORDERED: ceFAZolin SODIUM 3 GM in IV DEXTROSE 5% 100ML 100 ML IV ONE (06:00)
--- NOTE | 2019-04-22 06:10 | NUR ---
pt has not had any suicidal plans or intents for the last 10 years ago. Addendum: 04/22/19 at 0611 by KADI PACE RN Amended: Links added.
[2019-04-22 06:22] LABS: BASO % 1 % (0-3); EOS % 1 % (0-3); HEMATOCRIT 32.6 % (36.0-47.0); HEMOGLOBIN 11.2 g/dL (12.0-15.5); LYMPH # 1.3 x10^3/uL (1.0-4.8); LYMPH % 17 % (24-48); MEAN CORPUSCULAR HEMOGLOBIN 32 pg (25-35); MEAN CORPUSCULAR HGB CONC 35 g/dL (31-37); MEAN CORPUSCULAR VOLUME 91 fL (79-100); MONO # 0.4 x10^3/uL (0.0-1.1); MONO % 5 % (0-9); NEUT # 5.6 x10^3/uL (1.8-7.7); NEUT % 76 % (31-73); PLATELET COUNT 144 x10^3/uL (140-400); RED BLOOD COUNT 3.56 x10^6/uL (3.50-5.40); RED CELL DISTRIBUTION WIDTH 15.2 % (11.5-14.5); WHITE BLOOD COUNT 7.3 x10^3/uL (4.0-11.0)
[2019-04-22 06:25] LABS: BILIRUBIN,URINE SMALL (NEG); CLARITY,URINE CLEAR; COLOR,URINE AMBER; NITRITE,URINE NEGATIVE (NEG); PH,URINE 6.5; PROTEIN,URINE NEGATIVE (NEG-TRACE); UROBILINOGEN,URINE 0.2 mg/dL (0.2 mg/dL)
[2019-04-22 06:46] LABS: BACTERIA,URINE MODERATE /HPF (0-FEW); RBC,URINE 0 /HPF (0-2); SQUAMOUS EPITHELIAL CELL,UR MOD /LPF
[2019-04-22] MEDS: IV RINGERS,LACTATED 1000ML 1,000 ML IV SCH ×3 (07:15→21:42)
--- NOTE | 2019-04-22 07:36 | PDOC1 ---
OB - History Hx of Present Care: Good Care Ultrasounds: Normal mid trimester US Obstetrical Complications: Other (LGA) Medical Complications: None Past Family/Social History * Past Medical, Surgical, Family and Obstetric Histories reviewed from chart. Rubella: Immune RPR/VDRL: Negative GBS Status: Negative HBsAG: Negative OB - Chief Complaint & HPI Date of Admission: Date of Admission: Apr 22, 2019 at 05:35 Chief Complaint/History : 8 Para: 1 EGA: 39 Reason for admission: section (LGA) Admission Nurse Assessment Rev: Yes OB - Admission Exam Physical Exam Vitals: VS - Last 72 Hours, by Label Date Time Temp Pulse Resp B/P (MAP) Pulse Ox O2 Delivery O2 Flow Rate FiO2 04/22/19 06:13 98.9 63 16 117/75 (89) 98 Room Air 98.9 HEENT: Normal Heart: Regular Rate Lungs: Clear Abdomen: Gravid, Non tender, Soft Extremities: Edema Reflexes: Normal Cervical Dilatation: Fingertip Effacement: 25% Station: -3 Membranes: Intact Heart Rate: Normal Accelerations: Accelerations Present Short Term Variability: Present Contractions on Admission: >10 Minutes Apart Text A: 39 wks IUP LGA P: Admit for primary c/s due to LGA. VIOLETA PAINTING Jr, MD Apr 22, 2019 07:36
[2019-04-22] MEDS ORDERED: MORPHINE PF 10 MG/10 ML AMPUL. ONE (07:41)
[2019-04-22] MEDS ORDERED: fentaNYL PF VIAL 100 MCG/2 ML VIAL ONE (07:41)
[2019-04-22] MEDS ORDERED: OXYTOCIN 10 UNIT/ML VIAL. ONE ×2 (07:42→08:49)
[2019-04-22] MEDS ORDERED: OXYTOCIN 30 UNIT/500 ML PREMIX 500 ML IV PRN (07:45)
[2019-04-22] MEDS ORDERED: ZOLPIDEM 5 MG TABLET. PO PRN (07:45)
[2019-04-22] MEDS ORDERED: ONDANSETRON PF 4 MG/2 ML VIAL. IV PRN (07:45)
[2019-04-22] MEDS ORDERED: SIMETHICONE 80 MG TAB.CHEW PO PRN (07:45)
[2019-04-22] MEDS ORDERED: diphenhydrAMINE ORAL ELIXIR 12.5 MG/5 ML ML PO PRN (07:45)
[2019-04-22] MEDS ORDERED: MAG HYDROX/ALUMINUM HYD/SIMETH 30 ML ORAL.SUSP PO PRN (07:45)
[2019-04-22] MEDS: FERROUS SULFATE 325 MG TABLET. PO SCH ×2 (08:00→17:00)
[2019-04-22] MEDS ORDERED: DEXAMETHASONE SOD PHOS 4 MG/ML VIAL ONE (08:23)
[2019-04-22] MEDS ORDERED: diphenhydrAMINE 50 MG/ML VIAL ONE (08:23)
--- NOTE | 2019-04-22 08:43 | PDOC4 ---
OB Operative Note Date: Apr 22, 2019 PRE OP DIAGNOSIS: Other (LGA) POST OP DIAGNOSIS: Other (Same) OPERATION PERFORMED: Ben [facility] Surgeon Dr. Mcknight Business Development Consultant Welder First Class: Sumaya Anesthesia: Regional (Spinal) Blood Loss 800 ml Specimen placenta and OB Findings: Position (Vertex), Sex (Male), (8/9), Weight (8 Lb 14 oz) Complications none Additional Remarks pt. stable VIOLETA MCKNIGHT Jr, MD Apr 22, 2019 08:43
--- NOTE | 2019-04-22 08:56 | OP ---
DATE OF SURGERY: PREOPERATIVE DIAGNOSES: 1. A 39 weeks intrauterine . 2. Large for gestational age. POSTOPERATIVE DIAGNOSES: 1. A 39 weeks intrauterine . 2. Large for gestational age. PROCEDURE: Primary low transverse section. SURGEON: Violeta Mcknight MD FULL FASHIONED GARMENT KNITTER: Sumaya. ANESTHESIA: Spinal. ESTIMATED BLOOD LOSS: 800 mL. COMPLICATIONS: None. FINDINGS: Viable male infant, Apgars 8 and 9, weight 8 pounds 14 ounces. Three-vessel cord placenta delivered manually. SUMMARY: A 28-year-old 8, para 1 at 39 weeks, presented for primary low transverse section due to large for gestational age. She was counseled on the risks, benefits, and expectations and voiced clear understanding to proceed. DESCRIPTION OF PROCEDURE: The patient was taken to surgery suite and placed in dorsal supine position. She was prepped with ChloraPrep and draped in a sterile fashion. After adequate anesthesia, Pfannenstiel skin incision was made with scalpel down to and through the fascia. Fascia was extended laterally using curved Asher scissors. The superior edge of the fascia was grasped with 2 Shamika clamps and dissected free of the abdominal rectus muscle using blunt dissection along with Bovie cautery. The same process took place inferiorly. The abdominal rectus muscles were then dissected bluntly at the midline. The peritoneum was grasped with 2 hemostats and entered sharply with Metzenbaum scissors. This incision was extended superiorly as well as inferiorly. The Jam ring retractor was placed. Low transverse hysterotomy incision was made with scalpel down to the amniotic sac. Hysterotomy incision was extended laterally, superiorly digitally. Amniotomy was performed with Allis clamp. With additional fundal pressure, the infant's head was delivered in a smooth atraumatic manner. The anterior shoulder was then delivered followed by posterior shoulder and rest of male infant was delivered. The infant was suctioned with a bulb syringe orally and nasally, umbilical cord was clamped twice and cut and viable male infant was handed to waiting nursing staff. Umbilical cord blood was then obtained. Three-vessel cord placenta was delivered manually. The uterus was then exteriorized and cleared of clot and debris with a moist lap. Hysterotomy incision was reapproximated using 1 Vicryl suture in running locked fashion and imbricated layer of 1 Vicryl suture in a running fashion was placed for better hemostasis. [id number] sutures placed on the right apex of the hysterotomy incision for better hemostasis. Uterus palpated firm. Fallopian tubes and ovaries appeared normal bilaterally. Posterior cul-de-sac was cleared of clot and debris with moist lap. The uterus was then returned to the abdomen. Pericolic gutters were cleared of clot and debris with moist lap. The Jam ring retractor was removed. The hysterotomy incision was reviewed and was hemostatic. The peritoneum was reapproximated using 1 Vicryl suture in a running fashion. Fascia was reapproximated using Stratafix. Skin was reapproximated using 4-0 Vicryl suture in subcuticular manner. Prevena wound VAC was placed. The patient tolerated the procedure well and was taken to recovery room in stable condition. Sponge and needle count correct x 3. VIOLETA MCKNIGHT MD DR: JAYCEE/claus JOB#: [id number] / [id number]
[2019-04-22] MEDS: KETOROLAC 30 MG/ML VIAL. IV PRN ×2 (11:05→17:30)
[2019-04-23] MEDS: KETOROLAC 30 MG/ML VIAL. IV PRN (00:49)
[2019-04-23 00:52] VITALS: BP 105/53
[2019-04-23 03:51] LABS: BASO % 0 % (0-3); EOS % 1 % (0-3); HEMATOCRIT 22.1 % (36.0-47.0); HEMOGLOBIN 7.7 g/dL (12.0-15.5); LYMPH # 1.9 x10^3/uL (1.0-4.8); LYMPH % 27 % (24-48); MEAN CORPUSCULAR HEMOGLOBIN 32 pg (25-35); MEAN CORPUSCULAR HGB CONC 35 g/dL (31-37); MEAN CORPUSCULAR VOLUME 92 fL (79-100); MONO # 0.4 x10^3/uL (0.0-1.1); MONO % 6 % (0-9); NEUT # 4.6 x10^3/uL (1.8-7.7); NEUT % 67 % (31-73); PLATELET COUNT 133 x10^3/uL (140-400); WHITE BLOOD COUNT 6.9 x10^3/uL (4.0-11.0)
[2019-04-23 05:30] VITALS: BP 97/47
[2019-04-23] MEDS: IV RINGERS,LACTATED 1000ML 1,000 ML IV SCH ×3 (05:39→21:37)
[2019-04-23] MEDS: IBUPROFEN 400 MG TABLET. PO PRN ×2 (07:21→22:15)
[2019-04-23] MEDS: FERROUS SULFATE 325 MG TABLET. PO SCH ×2 (07:21→15:34)
[2019-04-23] MEDS: DOCUSATE SODIUM 100 MG CAPSULE. PO PRN ×2 (07:21→15:35)
[2019-04-23] MEDS: oxyCODONE/APAP 5/325 1 TAB TABLET PO PRN ×4 (07:21→19:45)
[2019-04-23] MEDS ORDERED: FLU VAX QS 2019-20 (36MOS+)/PF 0.5 ML SYRINGE. VAX IM ONE (10:30)
[2019-04-23] MEDS ORDERED: DIPHTH,PERTUSS(ACELL),TET TOX 0.5 ML DISP.SYRIN. VAX IM ONE (10:30)
[2019-04-23 11:49] VITALS: BP 111/73
--- NOTE | 2019-04-23 12:59 | PDOC ---
OB Progress Note Date of Service 04/23/19 Time of Evaluation 1255 Notes Pt. denies any complaints. Pain controlled. Lab Laboratory Tests Test 04/22/19 06:10 04/22/19 06:12 04/23/19 03:30 White Blood Count 7.3 x10^3/uL (4.0-11.0) 6.9 x10^3/uL (4.0-11.0) Red Blood Count 3.56 x10^6/uL (3.50-5.40) 2.40 x10^6/uL (3.50-5.40) Hemoglobin 11.2 g/dL (12.0-15.5) 7.7 g/dL (12.0-15.5) Hematocrit 32.6 % (36.0-47.0) 22.1 % (36.0-47.0) Mean Corpuscular Volume 91 fL (79-100) 92 fL (79-100) Mean Corpuscular Hemoglobin 32 pg (25-35) 32 pg (25-35) Mean Corpuscular Hemoglobin Concent 35 g/dL (31-37) 35 g/dL (31-37) Red Cell Distribution Width 15.2 % (11.5-14.5) 15.0 % (11.5-14.5) Platelet Count 144 x10^3/uL (140-400) 133 x10^3/uL (140-400) Neutrophils (%) (Auto) 76 % (31-73) 67 % (31-73) Lymphocytes (%) (Auto) 17 % (24-48) 27 % (24-48) Monocytes (%) (Auto) 5 % (0-9) 6 % (0-9) Eosinophils (%) (Auto) 1 % (0-3) 1 % (0-3) Basophils (%) (Auto) 1 % (0-3) 0 % (0-3) Neutrophils # (Auto) 5.6 x10^3/uL (1.8-7.7) 4.6 x10^3/uL (1.8-7.7) Lymphocytes # (Auto) 1.3 x10^3/uL (1.0-4.8) 1.9 x10^3/uL (1.0-4.8) Monocytes # (Auto) 0.4 x10^3/uL (0.0-1.1) 0.4 x10^3/uL (0.0-1.1) Eosinophils # (Auto) 0.0 x10^3/uL (0.0-0.7) 0.0 x10^3/uL (0.0-0.7) Basophils # (Auto) 0.0 x10^3/uL (0.0-0.2) 0.0 x10^3/uL (0.0-0.2) Treponema pallidum Antibody Nonreactive (Nonreactive) Urine Collection Type Unknown Urine Color Aidee Urine Clarity Clear Urine pH 6.5 Urine Specific [place] 1.025 Urine Protein Negative mg/dL (NEG-TRACE) Urine Glucose (UA) Negative mg/dL (NEG) Urine Ketones (Stick) 15 mg/dL (NEG) Urine Blood Negative (NEG) Urine Nitrite Negative (NEG) Urine Bilirubin Small (NEG) Urine Urobilinogen Dipstick 0.2 mg/dL (0.2 mg/dL) Urine Leukocyte Esterase Small (NEG) Urine RBC 0 /HPF (0-2) Urine WBC 5-10 /HPF (0-4) Urine Squamous Epithelial Cells Mod /LPF Urine Bacteria Moderate /HPF (0-FEW) Urine Mucus Mod /LPF Laboratory Tests Test 04/23/19 03:30 White Blood Count 6.9 x10^3/uL (4.0-11.0) Red Blood Count 2.40 x10^6/uL (3.50-5.40) Hemoglobin 7.7 g/dL (12.0-15.5) Hematocrit 22.1 % (36.0-47.0) Mean Corpuscular Volume 92 fL (79-100) Mean Corpuscular Hemoglobin 32 pg (25-35) Mean Corpuscular Hemoglobin Concent 35 g/dL (31-37) Red Cell Distribution Width 15.0 % (11.5-14.5) Platelet Count 133 x10^3/uL (140-400) Neutrophils (%) (Auto) 67 % (31-73) Lymphocytes (%) (Auto) 27 % (24-48) Monocytes (%) (Auto) 6 % (0-9) Eosinophils (%) (Auto) 1 % (0-3) Basophils (%) (Auto) 0 % (0-3) Neutrophils # (Auto) 4.6 x10^3/uL (1.8-7.7) Lymphocytes # (Auto) 1.9 x10^3/uL (1.0-4.8) Monocytes # (Auto) 0.4 x10^3/uL (0.0-1.1) Eosinophils # (Auto) 0.0 x10^3/uL (0.0-0.7) Basophils # (Auto) 0.0 x10^3/uL (0.0-0.2) Medications Current Medications Ringer's Solution 1,000 ml @ 1,000 mls/hr Q1H IV Last administered on 04/22/19at 06:15; Start 04/22/19 at 05:37; Stop 04/22/19 at 06:36; Status DC Ringer's Solution 1,000 ml @ 125 mls/hr Q8H IV Last administered on 04/23/19at 05:39; Start 04/22/19 at 05:37 Cefazolin Sodium 3 gm/Dextrose 100 ml @ 200 mls/hr 1X ONCE IV Last administer ed on 04/22/19at 06:15; Start 04/22/19 at 06:00; Stop 04/22/19 at 06:29; Status DC Sodium Chloride (Normal Saline Flush) 3 ml QSHIFT PRN IV AFTER MEDS AND BLOOD DRAWS; Start 04/22/19 at 05:45 Citric Acid/ Sodium Citrate (Bicitra) 30 ml 1X PRN PRN PO DYSPEPSIA Last administered on 04/22/19at 06:14; Start 04/22/19 at 05:45; Stop 04/23/19 at 05:44; Status DC Ibuprofen (Motrin) 800 mg PRN Q6HRS PRN PO MODERATE PAIN 4-6; Start 04/22/19 at 05:45; Stop 04/22/19 at 07:44; Status DC Sodium Chloride (Normal Saline Flush) 3 ml QSHIFT PRN IV AFTER MEDS AND BLOOD DRAWS; Start 04/22/19 at 07:45 Oxytocin/Sodium Chloride 500 ml @ 125 mls/hr CONT PRN IV EXCESSIVE POST- BLEEDING; Start 04/22/19 at 07:45; Stop 04/22/19 at 15:44; Status DC Ibuprofen (Motrin) 800 mg PRN Q4HRS PRN PO INFLAMMATION Last administered on 04/23/19at 07:21; Start 04/22/19 at 07:45 Ondansetron HCl (Zofran) 4 mg PRN Q6HRS PRN IV NAUSEA/VOMITING; Start 04/22/19 at 07:45 Docusate Sodium (Colace) 100 mg PRN BID PRN PO HARD STOOL Last administered on 04/23/19at 07:21; Start 04/22/19 at 07:45 Al Hydroxide/Mg Hydroxide (Mylanta Plus Xs) 30 ml PRN Q4HRS PRN PO HEARTBURN / GAS; Start 04/22/19 at 07:45 Simethicone (Gas-X) 80 mg PRN AFTMEALHC PRN PO GAS / BLOATING; Start 04/22/19 at 07:45 Diphenhydramine HCl (Benadryl Oral Elixir) 12.5 mg PRN Q6HRS PRN PO ITCHING; Start 04/22/19 at 07:45 Ferrous Sulfate (Feosol) 325 mg BIDWMEALS PO Last administered on 04/23/19at 07:21; Start 04/22/19 at 08:00 Zolpidem Tartrate (Ambien) 5 mg PRN QHS PRN PO INSOMNIA, MAY REPEAT X1; Start 04/22/19 at 07:45 Oxycodone/ Acetaminophen (Percocet 5/325) 2 tab PRN Q4HRS PRN PO MODERATE PAIN, SEVERE PAIN Last administered on 04/23/19at 11:41; Start 04/22/19 at 07:45 Ketorolac Tromethamine (Toradol 30mg Vial) 30 mg PRN Q6HRS PRN IV PAIN Last administered on 04/23/19at 00:49; Start 04/22/19 at 07:45; Stop 04/27/19 at 07:44 Morphine Sulfate (Morphine Preservative Free) 10 mg STK-MED ONCE .ROUTE ; Start 04/22/19 at 07:41; Stop 04/22/19 at 07:41; Status DC Fentanyl Citrate (Fentanyl 2ml Vial) 100 mcg STK-MED ONCE .ROUTE ; Start 04/22/19 at 07:41; Stop 04/22/19 at 07:41; Status DC Oxytocin (Pitocin) 10 unit STK-MED ONCE .ROUTE ; Start 04/22/19 at 07:42; Stop 04/22/19 at 07:42; Status DC Ephedrine Sulfate (Akovaz) 50 mg STK-MED ONCE .ROUTE ; Start 04/22/19 at 07:59; Stop 04/22/19 at 07:59; Status DC Diphenhydramine HCl (Benadryl) 50 mg STK-MED ONCE .ROUTE ; Start 04/22/19 at 08:23; Stop 04/22/19 at 08:24; Status DC Dexamethasone Sodium Phosphate (Decadron) 4 mg STK-MED ONCE .ROUTE ; Start 04/22/19 at 08:23; Stop 04/22/19 at 08:24; Status DC Oxytocin (Pitocin) 10 unit STK-MED ONCE .ROUTE ; Start 04/22/19 at 08:49; Stop 04/22/19 at 08:49; Status DC Diphtheria/ Tetanus/Acell Pertussis (Boostrix) 0.5 ml ONCE ONCE VAX IM ; Start 04/23/19 at 10:30; Stop 04/23/19 at 10:31; Status DC Influenza Virus Vaccine Quadrival (Afluria Quad 2019-20 (3yr Up) Syringe) 0.5 ml ONCE ONCE VAX IM ; Start 04/23/19 at 10:30; Stop 04/23/19 at 10:31; Status DC Active Scripts Active [place] 5-325 Tablet (Acetaminophen/Hydrocodone Bitart) 1 Each Tablet 1-2 Tab PO Q4-6HRS Reported Omeprazole 40 Mg Capsule.dr 40 Mg PO DAILY Exam Abd: soft, mild tenderness, fundus firm Prevena in place Assessment POD#1 s/p c/s Plan of Care: Continue current Tx, Mgmt VIOLETA PAINTING Jr, MD Apr 23, 2019 12:59
[2019-04-23 16:20] VITALS: BP 111/69
[2019-04-23 20:17] VITALS: BP 115/72
[2019-04-23 23:03] VITALS: BP 101/58
[2019-04-24] MEDS: oxyCODONE/APAP 5/325 1 TAB TABLET PO PRN ×3 (02:31→15:55)
[2019-04-24 05:21] VITALS: BP 117/67
[2019-04-24] MEDS: IBUPROFEN 400 MG TABLET. PO PRN ×2 (06:25→21:07)
[2019-04-24 07:45] VITALS: BP 116/67
[2019-04-24] MEDS: FERROUS SULFATE 325 MG TABLET. PO SCH ×2 (08:40→17:46)
[2019-04-24 12:30] VITALS: BP 123/72
[2019-04-24] MEDS ORDERED: METOCLOPRAMIDE 10 MG TABLET. PO ONE (13:45)
[2019-04-24 16:15] VITALS: BP 100/46
--- NOTE | 2019-04-24 17:14 | PDOC ---
OB Progress Note Date of Service 04/24/19 Time of Evaluation 1715 Notes Pt. feeling well. No complaints. Lab Laboratory Tests Test 04/23/19 03:30 White Blood Count 6.9 x10^3/uL (4.0-11.0) Red Blood Count 2.40 x10^6/uL (3.50-5.40) Hemoglobin 7.7 g/dL (12.0-15.5) Hematocrit 22.1 % (36.0-47.0) Mean Corpuscular Volume 92 fL (79-100) Mean Corpuscular Hemoglobin 32 pg (25-35) Mean Corpuscular Hemoglobin Concent 35 g/dL (31-37) Red Cell Distribution Width 15.0 % (11.5-14.5) Platelet Count 133 x10^3/uL (140-400) Neutrophils (%) (Auto) 67 % (31-73) Lymphocytes (%) (Auto) 27 % (24-48) Monocytes (%) (Auto) 6 % (0-9) Eosinophils (%) (Auto) 1 % (0-3) Basophils (%) (Auto) 0 % (0-3) Neutrophils # (Auto) 4.6 x10^3/uL (1.8-7.7) Lymphocytes # (Auto) 1.9 x10^3/uL (1.0-4.8) Monocytes # (Auto) 0.4 x10^3/uL (0.0-1.1) Eosinophils # (Auto) 0.0 x10^3/uL (0.0-0.7) Basophils # (Auto) 0.0 x10^3/uL (0.0-0.2) Medications Current Medications Ringer's Solution 1,000 ml @ 1,000 mls/hr Q1H IV Last administered on 04/22/19at 06:15; Start 04/22/19 at 05:37; Stop 04/22/19 at 06:36; Status DC Ringer's Solution 1,000 ml @ 125 mls/hr Q8H IV Last administered on 04/23/19at 05:39; Start 04/22/19 at 05:37; Stop 04/24/19 at 03:54; Status DC Cefazolin Sodium 3 gm/Dextrose 100 ml @ 200 mls/hr 1X ONCE IV Last administered on 04/22/19at 06:15; Start 04/22/19 at 06:00; Stop 04/22/19 at 06:29; Status DC Sodium Chloride (Normal Saline Flush) 3 ml QSHIFT PRN IV AFTER MEDS AND BLOOD DRAWS; Start 04/22/19 at 05:45; Stop 04/24/19 at 03:54; Status DC Citric Acid/ Sodium Citrate (Bicitra) 30 ml 1X PRN PRN PO DYSPEPSIA Last administered on 04/22/19at 06:14; Start 04/22/19 at 05:45; Stop 04/23/19 at 05:44; Status DC Ibuprofen (Motrin) 800 mg PRN Q6HRS PRN PO MODERATE PAIN 4-6; Start 04/22/19 at 05:45; Stop 04/22/19 at 07:44; Status DC Sodium Chloride (Normal Saline Flush) 3 ml QSHIFT PRN IV AFTER MEDS AND BLOOD DRAWS; Start 04/22/19 at 07:45; Stop 04/24/19 at 03:54; Status DC Oxytocin/Sodium Chloride 500 ml @ 125 mls/hr CONT PRN IV EXCESSIVE POST- BLEEDING; Start 04/22/19 at 07:45; Stop 04/22/19 at 15:44; Status DC Ibuprofen (Motrin) 800 mg PRN Q4HRS PRN PO INFLAMMATION Last administered on 04/24/19at 06:25; Start 04/22/19 at 07:45 Ondansetron HCl (Zofran) 4 mg PRN Q6HRS PRN IV NAUSEA/VOMITING; Start 04/22/19 at 07:45 Docusate Sodium (Colace) 100 mg PRN BID PRN PO HARD STOOL Last administered on 04/23/19at 15:35; Start 04/22/19 at 07:45 Al Hydroxide/Mg Hydroxide (Mylanta Plus Xs) 30 ml PRN Q4HRS PRN PO HEARTBURN / GAS; Start 04/22/19 at 07:45 Simethicone (Gas-X) 80 mg PRN AFTMEALHC PRN PO GAS / BLOATING; Start 04/22/19 at 07:45 Diphenhydramine HCl (Benadryl Oral Elixir) 12.5 mg PRN Q6HRS PRN PO ITCHING; Start 04/22/19 at 07:45 Ferrous Sulfate (Feosol) 325 mg BIDWMEALS PO Last administered on 04/24/19at 08:40; Start 04/22/19 at 08:00 Zolpidem Tartrate (Ambien) 5 mg PRN QHS PRN PO INSOMNIA, MAY REPEAT X1; Start 04/22/19 at 07:45 Oxycodone/ Acetaminophen (Percocet 5/325) 2 tab PRN Q4HRS PRN PO MODERATE PAIN, SEVERE PAIN Last administered on 04/24/19at 15:55; Start 04/22/19 at 07:45 Ketorolac Tromethamine (Toradol 30mg Vial) 30 mg PRN Q6HRS PRN IV PAIN Last administered on 04/23/19at 00:49; Start 04/22/19 at 07:45; Stop 04/27/19 at 07:44 Morphine Sulfate (Morphine Preservative Free) 10 mg STK-MED ONCE .ROUTE ; Start 04/22/19 at 07:41; Stop 04/22/19 at 07:41; Status DC Fentanyl Citrate (Fentanyl 2ml Vial) 100 mcg STK-MED ONCE .ROUTE ; Start at 07:41; Stop 04/22/19 at 07:41; Status DC Oxytocin (Pitocin) 10 unit STK-MED ONCE .ROUTE ; Start 04/22/19 at 07:42; Stop 04/22/19 at 07:42; Status DC Ephedrine Sulfate (Akovaz) 50 mg STK-MED ONCE .ROUTE ; Start 04/22/19 at 07:59; Stop 04/22/19 at 07:59; Status DC Diphenhydramine HCl (Benadryl) 50 mg STK-MED ONCE .ROUTE ; Start 04/22/19 at 08:23; Stop 04/22/19 at 08:24; Status DC Dexamethasone Sodium Phosphate (Decadron) 4 mg STK-MED ONCE .ROUTE ; Start 04/22/19 at 08:23; Stop 04/22/19 at 08:24; Status DC Oxytocin (Pitocin) 10 unit STK-MED ONCE .ROUTE ; Start 04/22/19 at 08:49; Stop 04/22/19 at 08:49; Status DC Diphtheria/ Tetanus/Acell Pertussis (Boostrix) 0.5 ml ONCE ONCE VAX IM ; Start 04/23/19 at 10:30; Stop 04/23/19 at 10:31; Status DC Influenza Virus Vaccine Quadrival (Afluria Quad 2018- (3yr Up) Syringe) 0.5 ml ONCE ONCE VAX IM ; Start 04/23/19 at 10:30; Stop 04/23/19 at 10:31; Status DC Metoclopramide HCl (Reglan) 10 mg PRN Q6HRS ONCE PO Last administered on 04/24/19at 13:50; Start 04/24/19 at 13:45; Stop 04/24/19 at 13:46; Status DC Active Scripts Active [place] 5-325 Tablet (Acetaminophen/Hydrocodone Bitart) 1 Each Tablet 1-2 Tab PO Q4-6HRS Reported Omeprazole 40 Mg Capsule.dr 40 Mg PO DAILY Exam Abd: soft, mild tenderness, fundus firm Prevena in place Assessment POD#2 s/p c/s Plan of Care: Continue current Tx, Mgmt VIOLETA PAINTING Jr, MD Apr 24, 2019 17:14
[2019-04-24] MEDS ORDERED: METOCLOPRAMIDE 10 MG TABLET. PO PRN (17:45)
[2019-04-24] MEDS ORDERED: PROMETHAZINE 12.5 MG TABLET. PO PRN (17:45)
[2019-04-24] MEDS: DOCUSATE SODIUM 100 MG CAPSULE. PO PRN (17:46)
[2019-04-24 21:40] VITALS: BP 88/48
[2019-04-25 05:11] VITALS: BP 108/60
[2019-04-25] MEDS: FERROUS SULFATE 325 MG TABLET. PO SCH (08:18)
[2019-04-25] MEDS: IBUPROFEN 400 MG TABLET. PO PRN (10:16)
[2019-04-25 10:20] VITALS: BP 132/79
--- NOTE | 2019-04-25 11:40 | PDOC3 ---
OB DISCHARGE SUMMARY DATE OF ADMISSION: 04/22/19 DATE OF DISCHARGE: 04/25/19 REASON FOR ADMISSION: section INTRAPARTUM PROCEDURES: : Low Cerv Trans DISCHARGE DIAGNOSIS: Term Delivered DISCHARGE INFORMATION: Activity (ad john ), Diet (regular), Instructions (pelvic rest x 6 wks) HOSPITAL COURSE Term gestation delivered section without complications. VIOLETA PAINTING Jr, MD Apr 25, 2019 11:40
[2019-04-25] MEDS ORDERED: DOCU100C28 PO (11:42)
[2019-04-25] MEDS ORDERED: OXYC1TAB15 PO (11:42)
[2019-04-25] MEDS ORDERED: IBUP-1027 PO (11:42)
--- NOTE | 2019-04-25 11:42 | DISCH ---
DISCHARGE INSTRUCTIONS Condition on Discharge Condition on Discharge: Stable Activity After Discharge Activity Instructions for Disc: Activity as tolerated Lifting Instructions after Dis: No heavy lifting Driving Instructions after Dis: No driving for 2 weeks Weight Bearing Status after Di: As tolerated Diet after Discharge Diet after Discharge: Regular Diet Texture: Regular Contacting the DRFran after DC Call your doctor for: Concerns you may have Follow-Up Follow up with: Dr. Mcknight in 2 wks VIOLETA MCKNIGHT Jr, MD Apr 25, 2019 11:42
[2019-04-25 13:20] VITALS: BP 114/66
== END 2019-04-25 13:30 | disposition home or self-care (01) | DRG 787 ==
LOC: 3 SO LND 05:35 → 3 NORTH 13:13
PROVIDERS: ADMIT Obstetrics & Gynecology; ATTEND Obstetrics & Gynecology
PROC: 10D00Z1 Extraction of Products of Conception, Low, Open Approach (ICD-10-PCS; principal; 2019-04-22)
DX: O36.63X0 Maternal care for excessive fetal growth, third trimester, not applicable or unspecified (principal); R71.0 Precipitous drop in hematocrit; Z3A.39 39 weeks gestation of pregnancy; Z37.0 Single live birth; Z88.8 Allergy status to other drugs, medicaments and biological substances; O75.89 Other specified complications of labor and delivery
CPT/HCPCS: 36415; 81001; 85025; 86592; 86850; 86900; 86901; 87086; 90471; 90686; 90715; J0690; J1100; J1200; J1885; J2274; J2590; J3010; J7120; J8597; G0378

== ENCOUNTER 2019-05-10 12:20 | Emergency (ER) | payer BC ==
[~2019-05-10] VITALS: Ht 165.1 cm; Wt 122.5 kg
[~2019-05-10 12:20] MED LIST changes: +DOCU100C28 PO; +IBUP-1027 PO; +OXYC1TAB15 PO
[2019-05-10 13:55] LABS: BASO # 0.1 x10^3/uL (0.0-0.2); BASO % 1 % (0-3); EOS # 0.2 x10^3/uL (0.0-0.7); EOS % 3 % (0-3); HEMATOCRIT 33.4 % (36.0-47.0); HEMOGLOBIN 11.1 g/dL (12.0-15.5); LYMPH # 1.6 x10^3/uL (1.0-4.8); LYMPH % 30 % (24-48); MEAN CORPUSCULAR HEMOGLOBIN 30 pg (25-35); MEAN CORPUSCULAR HGB CONC 33 g/dL (31-37); MEAN CORPUSCULAR VOLUME 90 fL (79-100); MONO # 0.4 x10^3/uL (0.0-1.1); MONO % 8 % (0-9); NEUT # 3.1 x10^3/uL (1.8-7.7); NEUT % 58 % (31-73); PLATELET COUNT 263 x10^3/uL (140-400); RED BLOOD COUNT 3.73 x10^6/uL (3.50-5.40); RED CELL DISTRIBUTION WIDTH 15.2 % (11.5-14.5); WHITE BLOOD COUNT 5.3 x10^3/uL (4.0-11.0)
[2019-05-10] MEDS ORDERED: IV NORMAL SALINE 1000ML BAG 1,000 ML IV ONE (14:00)
[2019-05-10 14:05] LABS: PROTHROMBIN TIME PATIENT 12.6 SEC (11.7-14.0)
[2019-05-10 14:06] LABS: CALCIUM 8.8 mg/dL (8.5-10.1); CREATININE 0.8 mg/dL (0.6-1.0); GFR 84.8; POTASSIUM 3.6 mmol/L (3.5-5.1)
[2019-05-10 14:12] LABS: ALBUMIN 3.2 g/dL (3.4-5.0); ALBUMIN/GLOBULIN RATIO 0.9 (1.0-1.7); TOTAL BILIRUBIN 0.3 mg/dL (0.2-1.0); TOTAL PROTEIN 6.7 g/dL (6.4-8.2)
[2019-05-10 15:19] VITALS: BP 105/49
--- NOTE | 2019-05-10 15:43 | RAD ---
PELVIS ULTRASOUND: 05/10/2019 2:12 PM INDICATION: 28 years old Female. Heavy vaginal bleeding with 04/22/2019. COMPARISON: None. TECHNIQUE: Transabdominal and transvaginal sonographic evaluation of the pelvis was performed. Grayscale, color Doppler and spectral waveform analysis were utilized. FINDINGS: UTERUS: Size: 12.7 x 9.2 x 6.4 cm. Masses: None. Endometrium: 13 mm. Fluid is noted within the endometrium. No suspicious vascularity is identified. RIGHT OVARY: 2.4 x 1.5 x 1.6 cm. Ovary is normal in appearance. LEFT OVARY: 2.2 x 1.9 x 1.4 cm. Ovary is normal in appearance. Arterial and venous waveform are identified within the ovaries bilaterally at the time of imaging. FREE FLUID: None. URINARY BLADDER: Unremarkable. IMPRESSION: Fluid and debris is noted within the endometrial canal and extending into the cervix. No suspicious vascularity is identified to suggest radiographic evidence for endometritis or retained products of conception. Electronically signed by: Pauline Church MD (05/10/2019 3:40 PM) [id number]
--- NOTE | 2019-05-10 16:24 | PHYS DOC ---
Past Medical History Past Medical History: Depression, Hypotension Additional Past Medical Histor: bradycardia, CELIAC Past Surgical History: Cholecystectomy, Tonsillectomy Additional Past Surgical Histo: TE fistula repair, trach malasia, herniated ovary repair Alcohol Use: None Drug Use: None Adult General Chief Complaint Chief Complaint: VAGINAL BLEEDING HPI HPI Patient is a 28 year old female, accompanied by her mother, who presents to the emergency room with complaints of heavy vaginal bleeding since 10:00 this morning. Patient states she is approximately 2 weeks after having a delivery. She states that she has had normal vaginal bleeding since the of her child. However, since 10:00 this morning she has saturated approximately a pad an hour after passing large dark blood clots. Patient denies any fever, abdominal pain, back pain, nausea, vomiting, diarrhea, dysuria, hematuria, increased urinary frequency, headache, cough, chest pain, palpitations, or shortness of breath. She currently denies any pain at this time. She denies any syncopal episodes, or sensations of the room spinning. States that she only feels lightheaded with position changes. Patient reports concern because her hemoglobin was only 7.7 after she had her infant. All other ROS is neg unless otherwise noted in HPI. Review of Systems Review of Systems See Above Current Medications Current Medications Current Medications Medications (Trade) Dose Ordered Sig/[place] Start Time Stop Time Status Last Admin Dose Admin Sodium Chloride 1,000 ml @ 1,000 mls/hr 1X ONCE 05/10/19 14:00 05/10/19 14:59 DC 05/10/19 13:53 1,000 MLS/HR Allergies Allergies Allergies Coded Allergies Type Severity Reaction Last Updated Verified gluten Allergy Intermediate 06/17/15 Yes melon Allergy Intermediate Itching 06/17/15 Yes ondansetron Adverse Reaction Intermediate makes her more nauseaous 01/27/19 Yes Physical Exam Physical Exam See Above Constitutional: Well developed, well nourished, no acute distress, non-toxic appearance, obese. [] HENT: Normocephalic, atraumatic, bilateral external ears normal, oropharynx moist, no oral exudates, nose normal. [] Eyes: PERRLA, EOMI, conjunctiva normal, no discharge. [] Neck: Normal range of motion, no tenderness, supple, no stridor. [] Cardiovascular:Heart rate regular rhythm, no murmur [] Lungs & Thorax: Bilateral breath sounds clear to auscultation [] Pelvic Exam: Environmental Compliance Inspector present Zonia RN Abdomen: Nontender, soft External Genitalia: Normal Skin Speculum: Normal vaginal mucosa, bloody cervical discharge; dark red blood noted in vaginal vault Bimanual: No adnexal masses or tenderness, No CMT Skin: Warm, dry, no erythema, no rash. [] Extremities: No cyanosis, ROM intact, no edema. [] Neurologic: Alert and oriented X 3, no focal deficits noted. [] Psychologic: Affect normal, judgement normal, mood normal. [] Current Patient Data Vital Signs Vital Signs Date Time Temp Pulse Resp B/P (MAP) Pulse Ox O2 Delivery O2 Flow Rate FiO2 05/10/19 15:19 60 105/49 (67) 96 Room Air 05/10/19 14:49 22 05/10/19 13:33 98.7 98.7 Lab Values Laboratory Tests Test 05/10/19 13:50 White Blood Count 5.3 x10^3/uL (4.0-11.0) Red Blood Count 3.73 x10^6/uL (3.50-5.40) Hemoglobin 11.1 g/dL (12.0-15.5) L Hematocrit 33.4 % (36.0-47.0) L Mean Corpuscular Volume 90 fL (79-100) Mean Corpuscular Hemoglobin 30 pg (25-35) Mean Corpuscular Hemoglobin Concent 33 g/dL (31-37) Red Cell Distribution Width 15.2 % (11.5-14.5) H Platelet Count 263 x10^3/uL (140-400) Neutrophils (%) (Auto) 58 % (31-73) Lymphocytes (%) (Auto) 30 % (24-48) Monocytes (%) (Auto) 8 % (0-9) Eosinophils (%) (Auto) 3 % (0-3) Basophils (%) (Auto) 1 % (0-3) Neutrophils # (Auto) 3.1 x10^3/uL (1.8-7.7) Lymphocytes # (Auto) 1.6 x10^3/uL (1.0-4.8) Monocytes # (Auto) 0.4 x10^3/uL (0.0-1.1) Eosinophils # (Auto) 0.2 x10^3/uL (0.0-0.7) Basophils # (Auto) 0.1 x10^3/uL (0.0-0.2) Prothrombin Time 12.6 SEC (11.7-14.0) Prothrombin Time INR 1.0 (0.8-1.1) Activated Partial Thromboplast Time 27 SEC (24-38) Sodium Level 144 mmol/L (136-145) Potassium Level 3.6 mmol/L (3.5-5.1) Chloride Level 108 mmol/L (98-107) H Carbon Dioxide Level 28 mmol/L (21-32) Anion Gap 8 (6-14) Blood Urea Nitrogen 8 mg/dL (7-20) Creatinine 0.8 mg/dL (0.6-1.0) Estimated GFR (Cockcroft-Gault) 84.8 BUN/Creatinine Ratio 10 (6-20) Glucose Level 93 mg/dL (70-99) Calcium Level 8.8 mg/dL (8.5-10.1) Total Bilirubin 0.3 mg/dL (0.2-1.0) Aspartate Amino Transferase (AST) 26 U/L (15-37) Alanine Aminotransferase (ALT) 34 U/L (14-59) Alkaline Phosphatase 88 U/L (46-116) Total Protein 6.7 g/dL (6.4-8.2) Albumin 3.2 g/dL (3.4-5.0) L Albumin/Globulin Ratio 0.9 (1.0-1.7) L Laboratory Tests 05/10/19 13:50 Laboratory Tests 05/10/19 13:50 EKG EKG [] Radiology/Procedures Radiology/Procedures PROCEDURE: PELVIS ULTRASOUND PELVIS ULTRASOUND: 05/10/2019 2:12 PM INDICATION: 28 years old Female. Heavy vaginal bleeding with 04/22/2019. COMPARISON: None. TECHNIQUE: Transabdominal and transvaginal sonographic evaluation of the pelvis was performed. Grayscale, color Doppler and spectral waveform analysis were utilized. FINDINGS: UTERUS: Size: 12.7 x 9.2 x 6.4 cm. Masses: None. Endometrium: 13 mm. Fluid is noted within the endometrium. No suspicious vascularity is identified. RIGHT OVARY: 2.4 x 1.5 x 1.6 cm. Ovary is normal in appearance. LEFT OVARY: 2.2 x 1.9 x 1.4 cm. Ovary is normal in appearance. Arterial and venous waveform are identified within the ovaries bilaterally at the time of imaging. FREE FLUID: None. URINARY BLADDER: Unremarkable. IMPRESSION: Fluid and debris is noted within the endometrial canal and extending into the cervix. No suspicious vascularity is identified to suggest radiographic evidence for endometritis or retained products of conception. Patient is asymptomatic with normal orthostatic blood pressures[] Course & Med Decision Making Course & Med Decision Making Pertinent Labs and Imaging studies reviewed. (See chart for details) dx: Vaginal bleeding problems, bradycardia cbc: Hemoglobin 11.1 hematocrit 33.4; PTT and INR within normal limits; CMP: Chloride is 108, otherwise unremarkable No bright red bleeding on vaginal exam. I spoke with Dr. Mcknight and advised of patient presentation in the emergency department. Patient is asymptomatic with orthostatic vital signs. Her hemoglobin and hematocrit are improved since her previous visit, CMP and PT/INR were unremarkable. Pelvic ultrasound revealed fluid and debris within the endometrial canal and extending into the cervix. No suspicious vascularity is identified to suggest radiographic evidence for endometritis or retained products of conception. Dr. Mcknight came to patient's room to evaluate patient before d/c. Pt was enc ouraged to change positions slowly. Drink plenty of fluids. Follow up with cardiology next week and obtain echocardiogram as ordered by Dr. Mcknight. Return to the ER if symptoms worsen. Do not hold baby if you are feeling dizzy[] PT verbalized an understanding of home care, medications, follow-up, and return to ED instructions and was in agreement with the plan of care. Dragon Disclaimer Dragon Disclaimer This electronic medical record was generated, in whole or in part, using a voice recognition dictation system. Departure Departure Impression: Primary Impression: Vaginal bleeding problems Additional Impression: Bradycardia with 41-50 beats per minute Disposition: HOME, SELF-CARE Condition: STABLE Referrals: VIOLETA MCKNIGHT Jr, MD (PCP) Patient Instructions: Abnormal Uterine Bleeding, Bradycardia Additional Instructions: Change positions slowly. Drink plenty of fluids. Follow up with cardiology next week and obtain echocardiogram as ordered by Dr. Mcknight. Return to the ER if symptoms worsen. Do not hold baby if you are feeling dizzy. 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
== END 2019-05-10 16:48 | disposition home or self-care (01) ==
LOC: ER 12:20
DX: O72.1 Other immediate postpartum hemorrhage (principal); R00.1 Bradycardia, unspecified; R42 Dizziness and giddiness
CPT/HCPCS: 36415; 76856; 80053; 85025; 85610; 85730; 96360; 99285; J7030

== ENCOUNTER → 2019-05-15 | Outpatient (CLI) | payer BC ==
[2019-05-10 15:19] VITALS: BP 105/49
--- NOTE | 2019-05-15 10:57 | EKG ---
[facility] [address] [place] [address] Test Date: 2019-05-15 Test Time: 10:54:25 Pat Name: ADAN BLEVINS Department: Room: Gender: F Cotton Agent: : [id number] Requested By: VIOLETA PAINTING Order Number: [id number] Reading MD: Gianni Rothman Measurements Intervals [place] Rate: 62 P: 26 MN: 126 QRS: 28 QRSD: 106 T: 28 QT: 396 QTc: 404 Interpretive Statements SINUS ARRHYTHMIA Electronically Signed On 05-20-2019 14:57:22 ED TECH by Gianni Rothman
== END | disposition home or self-care (01) ==
LOC: EKG 10:29
PROVIDERS: ATTEND Obstetrics & Gynecology
DX: I49.8 Other specified cardiac arrhythmias (principal); R55 Syncope and collapse
CPT/HCPCS: 93005

== ENCOUNTER → 2019-06-03 | Outpatient (CLI) | payer BC ==
[2019-05-10 15:19] VITALS: BP 105/49
--- NOTE | 2019-06-03 10:57 | CARD ---
MR#: [id number] Date of Study: 06/03/2019 Ordering Physician: VIOLETA PAINTING, Referring Physician: VIOLETA PAINTING Tech: Tameka Gonzales [facility] APPROVED REPORT EXAM: Two-dimensional and M-mode echocardiogram with Doppler and color Doppler. Other Information Quality : Fair Rhythm : Bradycardia INDICATION Abnormal ECG S/P -6 weeks ago 2D DIMENSIONS RVDd2.3 (2.9-3.5cm)Left Atrium(2D)4.1 (1.6-4.0cm) IVSd1.0 (0.7-1.1cm)Aortic Root(2D)2.8 (2.0-3.7cm) LVDd5.8 (3.9-5.9cm)LVOT Diameter2.3 (1.8-2.4cm) PWd1.0 (0.7-1.1cm)LVDs4.5 (2.5-4.0cm) FS (%) 21.6 %SV71.0 ml LVEF(%)43.1 (>50%) Aortic Valve AoV Peak Torrey.168.1cm/sAoV VTI38.9cm AO Peak GR.11.3mmHgLVOT Peak Torrey.113.3cm/s AO Mean GR.6mmHgAVA (VMAX)2.91cm2 WENDIE (VTI)3.10cm2 Mitral Valve MV E Xheogcga741.4cm/sMV DECEL [id number] MV A Mpsvddmv26.1cm/sE/A Ratio2.1 Tricuspid Valve TR P. Slvnadqf100mj/sRAP ESJFNYWF8cqBh TR Peak Gr.85vjLrCKIQ02wmLv Pulmonary Vein S1 Ebssvhxt15.2cm/sD2 Ybdhzybb12.1cm/s LEFT VENTRICLE The Left Ventricle is mildly dilated. There is normal left ventricular wall thickness. Left ventricle systolic function is mildly impaired. The Ejection Fraction is 40-45%. May be underestimated due to bradycardia (HR 43) and conduction defect. There is mild global hypokinesis of the left ventricle. Th e left ventricular diastolic function and filling is normal for age. RIGHT VENTRICLE The right ventricle is normal size. The right ventricular systolic function is normal. ATRIA The left atrium is mildly dilated. The right atrium size is normal. The interatrial septum is intact with no evidence for an atrial septal defect or patent foramen ovale as noted on 2-D or Doppler imagi ng. AORTIC VALVE The aortic valve is not well visualized but is functioning well by Doppler interrogation. Doppler and Color Flow revealed no significant aortic regurgitation. There is no significant aortic valvular franki nosis. MITRAL VALVE The mitral valve is calcified but opens well. There is no evidence of mitral valve prolapse. There is no mitral valve stenosis. Doppler and Color Flow revealed no mitral valve regurgitation noted. TRICUSPID VALVE The tricuspid valve is normal in structure and function. Doppler and Color Flow revealed trace to mil d tricuspid regurgitation. The PA pressure was estimated at 24 mmHg. There is no tricuspid valve sten osis. PULMONIC VALVE The pulmonic valve is not well visualized. Doppler and Color Flow revealed mild pulmonic valvular reg urgitation. There is no pulmonic valvular stenosis. GREAT VESSELS The aortic root is normal in size. The ascending aorta is normal in size. The IVC is normal in size a nd collapses >50% with inspiration. PERICARDIAL EFFUSION There is no evidence of significant pericardial effusion. Critical Notification Critical Value: No <Conclusion> The Left Ventricle is mildly dilated. Left ventricle systolic function is mildly impaired. The Ejection Fraction is 40-45%. May be underest imated due to bradycardia (HR 43) and conduction defect. There is mild global hypokinesis of the left ventricle. Signed by : Prashanth Reyes, Electronically Approved : 06/03/2019 10:57:05
== END | disposition home or self-care (01) ==
LOC: ECHO 09:59
PROVIDERS: ATTEND Obstetrics & Gynecology
DX: I08.8 Other rheumatic multiple valve diseases (principal)
CPT/HCPCS: 93306

== ENCOUNTER → 2020-11-05 | Outpatient (CLI) | payer BC ==
--- NOTE | 2020-11-06 15:19 | CARD ---
MR#: [id number] Date of Study: 11/05/2020 Ordering Physician: EVERTON MARCUS, Referring Physician: EVERTON MARCUS, Tech: Tameka Gonzales [facility] APPROVED REPORT EXAM: Two-dimensional and M-mode echocardiogram with Doppler and color Doppler. Other Information Quality : AverageHR: 67bpm Rhythm : NSRTechnically limited study due to body habitus. INDICATION Cardiomyopathy 2D DIMENSIONS RVDd2.5 (2.9-3.5cm)Left Atrium(2D)3.8 (1.6-4.0cm) IVSd1.0 (0.7-1.1cm)Aortic Root(2D)2.8 (2.0-3.7cm) LVDd4.5 (3.9-5.9cm)LVOT Diameter2.4 (1.8-2.4cm) PWd1.0 (0.7-1.1cm)LVDs3.2 (2.5-4.0cm) FS (%) 29.2 %SV52.4 ml LVEF(%)56.1 (>50%) Aortic Valve AoV Peak Torrey.154.5cm/sAoV VTI30.3cm AO Peak GR.9.5mmHgLVOT VTI 29.83cm AO Mean GR.5mmHg Mitral Valve MV E Qncxfhdb01.1cm/sMV DECEL [id number] MV A Odtnfeyc99.7cm/sE/A Ratio1.2 TDI Lateral E' P. V14.55cm/sMedial E' P. V7.21cm/s E/Lateral E'6.8E/Medial E'13.7 Tricuspid Valve TR P. Fzyjfwww621fc/sTR Peak Gr.15mmHg Pulmonary Vein S1 Jchrcnhz50.9cm/sS2 Kgdsyouc65.55cm/s D2 Tfzcbvpg28.6cm/s LEFT VENTRICLE The left ventricle is normal size. There is normal left ventricular wall thickness. The left ventricu lar systolic function is mildly decreased. EF 40-45% Septal motion suggestive of conduction defect. O therwise, there is mild global hypokinesis. Tissue Doppler imaging reveals moderate left ventricular diastolic dysfunction. RIGHT VENTRICLE The right ventricle is normal size. There is normal right ventricular wall thickness. The right ventr icular systolic function is normal. ATRIA The left atrium size is normal. The right atrium size is normal. The interatrial septum is intact wit h no evidence for an atrial septal defect or patent foramen ovale as noted on 2-D or Doppler imaging. AORTIC VALVE The aortic valve is normal in structure and function. Doppler and Color Flow revealed no significant aortic regurgitation. There is no significant aortic valvular stenosis. MITRAL VALVE The mitral valve is normal in structure and function. There is no evidence of mitral valve prolapse. There is no mitral valve stenosis. Doppler and Color Flow revealed no mitral valve regurgitation note d. TRICUSPID VALVE The tricuspid valve is normal in structure and function. Doppler and Color Flow revealed trace tricus pid regurgitation. PAP 22 mmHg. There is no tricuspid valve stenosis. PULMONIC VALVE Doppler and Color Flow revealed no pulmonic valvular regurgitation. There is no pulmonic valvular franki nosis. GREAT VESSELS The aortic root is normal in size. The ascending aorta is normal in size. The IVC is normal in size a nd collapses >50% with inspiration. PERICARDIAL EFFUSION There is no evidence of significant pericardial effusion. Critical Notification Critical Value: No <Conclusion> The left ventricular systolic function is mildly decreased. EF 40-45% Septal motion suggestive of conduction defect. Otherwise, there is mild global hypokinesis. Signed by : Everton Marcus, Electronically Approved : 11/06/2020 15:18:46
== END ==
LOC: ECHO 14:11
PROVIDERS: ATTEND Internal Medicine Cardiovascular Disease
DX: I42.9 Cardiomyopathy, unspecified (principal)
CPT/HCPCS: 93306